=== PATIENT | male | born 1970 | race Caucasian/White ===

== ENCOUNTER 2022-04-09 01:39 | Day surgery (SDC) | payer OTHER, SELFPAY ==
[2022-02-14 09:53] VITALS: BMI 25.9
[2022-03-21 15:15] VITALS: BMI 25.9
[2022-04-09] MEDS: GENTAMICIN 80MG/SOD CHL 50 ML 80 MG/50 ML BAG 100 MG IVPB (06:50)
[2022-04-09 07:04] LABS: Glucose Point of Care 125 mg/dl (65-105)
[2022-04-09 07:05] VITALS: BP 120/72; PULSE 66; RESP 20; TEMP 35.8; O2SAT 97; BMI 26.2
[2022-04-09 07:05] LABS: INR 1.1; Prothrombin Time 13.9 Seconds (11.1-14.7)
--- NOTE | 2022-04-09 07:17 | WPDANESEPPF ---
Anes - Initial Pre Proc Eval Procedure: Operation Date: 04/09/22 07:30 Proposed Procedures p Screening Colonoscopy - Jose Alberto Bishop MD Date/Time: 04/09/22 07:17 Surgeon: Jose Alberto Bishop MD Pre Op Diagnosis: neoplasm screening Patient Data Age: 51 Gender: M Height: 1.7 m Weight: 76.1 kg Last Vital Signs Temp 35.8 C L 04/09/22 07:05 Pulse 66 04/09/22 07:05 Resp 20 04/09/22 07:05 BP 120/72 04/09/22 07:05 Pulse Ox 97 04/09/22 07:05 O2 Del Method Room Air 04/09/22 07:05 Allergies Allergy/AdvReac Type Severity Reaction Status Date / Time No Known Allergies Allergy Verified 03/21/22 15:14 Home Medications Medication Instructions Recorded Confirmed Type blood sugar diagnostic #10 ea 08/15/19 03/21/22 History lancets 23 gauge (Lancets,Thin) #25 ea 08/15/19 03/21/22 History metoprolol succinate 50 mg 50 mg PO DAILY 08/15/19 03/21/22 History tablet,extended release 24 hr glimepiride 4 mg tablet 4 mg PO QAM #90 tabs 04/24/21 03/21/22 Rx allopurinol 300 mg tablet 300 mg PO DAILY #7 tabs 10/17/21 03/21/22 Rx metformin 1,000 mg tablet 1,000 mg PO BID #180 tabs 01/29/22 03/21/22 Rx atorvastatin 10 mg tablet 5 mg PO DAILY 02/14/22 03/21/22 History levothyroxine 75 mcg tablet 75 mcg PO DAILY #90 tabs 03/22/22 04/09/22 Rx venlafaxine 75 mg capsule,extended 75 mg PO QAM #90 caps 03/22/22 04/09/22 Rx release 24 hr warfarin 10 mg tablet 11 mg PO DAILY 04/09/22 04/09/22 History warfarin 10 mg tablet See Rx Instructions .Route .COMPLEX 04/09/22 04/09/22 History Laboratory Tests 04/09/22 04/09/22 06:48 07:00 PT 13.9 Seconds Seconds (11.1-14.7) INR 1.1 POC Capillary Glucose 125 mg/dl H mg/dl (65-105) Patient hx anesthesia problems: none Family hx anesthesia problems: none Results Review: All pre-operative results and documents have been reviewed as part of the pre-operative evaluation. 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, stage II (mild) Controlled type 2 diabetes mellitus with microalbuminuria, without long-term current use of insulin Hypothyroidism (acquired) Major depression Paroxysmal atrial fibrillation (07/18/15) Personal history of (corrected) congenital malformations of heart and circulatory system Spermatocele of epididymis, single Surgical History Surgical History (Updated 04/09/22 @ 07:22 by Raji Hernandez MD) AICD (automatic cardioverter/defibrillator) present Family History Family History Mother Hypertension Family history of diabetes mellitus in first degree relative Family history of congestive heart failure Father Family history of diabetes mellitus in first degree relative Sibling Family history of diabetes mellitus in first degree relative Social History Social History (Updated 02/14/22 @ 11:30 by Gale Coleman RN) Smoking packs per day: 1 Smoking cigarettes per day: 20.0 Years smoked: 17 Smoking pack-years: 17.00 Smoking status: Former smoker Tobacco type: cigarettes Alcohol intake: current Alcohol use details: Rarely Substance use: never Substance use type: does not use Living arrangements: with family Spiritual care concerns: No Anes - Eval Final PreProcedure Day of Procedure 04/09/22 07:17 Patient weight: overweight Heart: regular rate and rhythm Lungs: clear to auscultation and normal air movement Airway: Mallampati scale class II Neurological: alert and oriented Last oral intake: >/= 8 hours ASA classification: IV Emergent: no Anesthetic plan: proceed Anesthesia type and monitoring: general GIVS Results Review: All pre-operative results and documents have been reviewed
[2022-04-09] MEDS: AMPICILLIN 2 GM/NS 100 ML 2 GM/100 ML BAG IVPB (07:20)
[2022-04-09] MEDS: LACTATED RINGERS 1,000 ML 150 ML IV CONT (07:46)
--- NOTE | 2022-04-09 08:02 | PM.IMHP ---
H&P: HPI History of Present Illness Date/Time: 04/09/22 08:02 Chief Complaint: Neoplasia screening. Narrative: This is a 51-year-old white male patient referred for neoplasia screening colonoscopy. Patient states that his current weight appetite bowel movements are normal. Denies any blood in his stools. Family history is significant that his mother had colon polyps. Patient has a distant history of tetralogy of Fallot. He had in surgery as an to correct this. More recently patient has had a pulmonary valve replacement with both being valve. Patient presents today for screening colonoscopy. Review of Systems Review of Systems: Review of systems noncontributory. 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, stage II (mild) Controlled type 2 diabetes mellitus with microalbuminuria, without long-term current use of insulin Hypothyroidism (acquired) Major depression Paroxysmal atrial fibrillation (07/18/15) Personal history of (corrected) congenital malformations of heart and circulatory system Spermatocele of epididymis, single Surgical History Surgical History (Updated 04/09/22 @ 07:22 by Raji Hernandez MD) AICD (automatic cardioverter/defibrillator) present Family History Family History Mother Hypertension Family history of diabetes mellitus in first degree relative Family history of congestive heart failure Father Family history of diabetes mellitus in first degree relative Sibling Family history of diabetes mellitus in first degree relative Social History Social History (Updated 02/14/22 @ 11:30 by Gale Coleman RN) Smoking packs per day: 1 Smoking cigarettes per day: 20.0 Years smoked: 17 Smoking pack-years: 17.00 Smoking status: Former smoker Tobacco type: cigarettes Alcohol intake: current Alcohol use details: Rarely Substance use: never Substance use type: does not use Living arrangements: with family Spiritual care concerns: No Meds Home Medications and Allergies Home Medications Medication Instructions Recorded Confirmed Type blood sugar diagnostic #10 ea 08/15/19 03/21/22 History lancets 23 gauge (Lancets,Thin) #25 ea 08/15/19 03/21/22 History metoprolol succinate 50 mg 50 mg PO DAILY 08/15/19 03/21/22 History tablet,extended release 24 hr glimepiride 4 mg tablet 4 mg PO QAM #90 tabs 04/24/21 03/21/22 Rx allopurinol 300 mg tablet 300 mg PO DAILY #7 tabs 10/17/21 03/21/22 Rx metformin 1,000 mg tablet 1,000 mg PO BID #180 tabs 01/29/22 03/21/22 Rx atorvastatin 10 mg tablet 5 mg PO DAILY 02/14/22 03/21/22 History levothyroxine 75 mcg tablet 75 mcg PO DAILY #90 tabs 03/22/22 04/09/22 Rx venlafaxine 75 mg capsule,extended 75 mg PO QAM #90 caps 03/22/22 04/09/22 Rx release 24 hr warfarin 10 mg tablet 11 mg PO DAILY 04/09/22 04/09/22 History warfarin 10 mg tablet See Rx Instructions .Route .COMPLEX 04/09/22 04/09/22 History Allergies Allergy/AdvReac Type Severity Reaction Status Date / Time No Known Allergies Allergy Verified 03/21/22 15:14 Vital Signs Vital Signs - 24 hr 04/09/22 07:05 Temperature 96.5 F L Pulse Rate 66 Respiratory Rate 20 Blood Pressure 120/72 Pulse Oximetry 97 Oxygen Delivery Room Air Exam Narrative: Physical exam reveals patient to be alert. Vital signs stable. HEENT exam is unremarkable. Patient is anicteric. Lungs are clear to auscultation and percussion. Heart Reveals significant murmurs.. Abdomen bowel sounds are present soft nontender with no organomegaly. Digital external rectal exam is normal. Assessment and Plan Assessment and plan (1) Encounter for screening colonoscopy: Code(s): Z12
[2022-04-09 08:36] VITALS: BP 83/51; PULSE 62; RESP 25; O2SAT 97
[2022-04-09 08:46] VITALS: BP 97/66; PULSE 60; RESP 27; O2SAT 97
[2022-04-09 08:56] VITALS: BP 108/78; PULSE 63; RESP 26; O2SAT 100
== END 2022-04-09 09:09 | disposition home or self-care (01) ==
PROVIDERS: PCP Family Medicine; Visit Provider Internal Medicine Gastroenterology
PROC: 0DJD8ZZ Inspection of Lower Intestinal Tract, Via Natural or Artificial Opening Endoscopic (ICD-10-PCS; CPT 45378; principal; 2022-04-09 07:30)
DX: Z12.11 Encounter for screening for malignant neoplasm of colon (principal); D12.2 Benign neoplasm of ascending colon; D12.5 Benign neoplasm of sigmoid colon; I48.0 Paroxysmal atrial fibrillation; K64.8 Other hemorrhoids; R42 Dizziness and giddiness; F32.A Depression, unspecified; E11.22 Type 2 diabetes mellitus with diabetic chronic kidney disease; N18.2 Chronic kidney disease, stage 2 (mild); R80.8 Other proteinuria; Z95.810 Presence of automatic (implantable) cardiac defibrillator; Z87.891 Personal history of nicotine dependence; E03.9 Hypothyroidism, unspecified; Z79.84 Long term (current) use of oral hypoglycemic drugs; Z79.01 Long term (current) use of anticoagulants; Z87.74 Personal history of (corrected) congenital malformations of heart and circulatory system
CPT/HCPCS: 45385; 36415; 82948; 85610; 88305; J0290; J1580; J2704; J7120

== ENCOUNTER 2022-04-11 10:02 | Observation (INO) | payer OTHER, SELFPAY ==
[2022-04-11] VITALS (27 sets, daily range): BP systolic 91–108; BP diastolic 54–76; PULSE 70–83; RESP 15–23; TEMP 36.3–36.7; O2SAT 94–100; BMI 26.4
--- NOTE | ~2022-04-11 | CT_ITS ---
EXAMINATION: CT abdomen pelvis w con DATE: 04/11/2022 11:50 INDICATION: Hematochezia. TECHNIQUE: Computed tomography (CT) of the abdomen and pelvis was performed with 100 mL Omnipaque-350 intravenous contrast. Automated exposure control and iterative reconstruction technique were employe d. The dose-length product was 366.31 mGy-cm. COMPARISON: None FINDINGS: Mild discoid atelectasis at the lingula. Mild cardiomegaly. No pericardial or pleural effusion. Dual lead pacemaker seen with lead tips at the right atrial appendage and apex of the right ventricle. Aditi er, gallbladder, spleen, pancreas, bilateral adrenal glands and kidneys are normal. Bladder is normal . Moderate-sized fat-containing left inguinal hernia. Bowels are normal with no wall thickening or ob struction. No evident intraluminal active contrast extravasation. The appendix is not visualized. No pericecal inflammatory change to suggest acute appendicitis. No free intraperitoneal gas or fluid. No pathologically enlarged abdominal or pelvic lymphadenopathy. Chronic appearing mild anterior wedging at L1 with additional Schmorl's node along the superior endplate. Normal variant L3 limbus vertebra. Mild to moderate thoracolumbar spondylosis. IMPRESSION: 1. No acute intra-abdominal/pelvic process. 2. Mild cardiomegaly. Reviewed, dictated and finalized at location A.
--- NOTE | 2022-04-11 10:44 | ED.GIBLEED ---
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 Patient states that with every bowel movement, he is noted a large amount of bright red blood mixed in with the stool. He has had about 4 episodes in total. He notes that his stools have been liquid. Additionally notes that he has felt lightheaded and somewhat weak, has not passed out. He stopped his warfarin for 4 days prior to the procedure, but restarted the day before he started to bleed. Spoke to Dr. Bishop this morning who recommended ED evaluation. Denies any abdominal pain, shortness of breath, chest pain. 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 <JULIUS Hart Last Filed: 04/11/22 18:25> Related Data Home medications: Home Medications Medication Instructions Recorded Confirmed metoprolol succinate 50 mg 50 mg PO DAILY 08/15/19 04/11/22 tablet,extended release 24 hr atorvastatin 10 mg tablet 5 mg PO DAILY 02/14/22 04/11/22 warfarin 10 mg tablet 11 mg PO DAILY 04/09/22 04/11/22 warfarin 10 mg tablet See Rx Instructions .Route .COMPLEX 04/09/22 04/11/22 <JULIUS Hart Last Filed: 04/11/22 18:25> Allergies/Adverse reactions: Allergies Allergy/AdvReac Type Severity Reaction Status Date / Time No Known Allergies Allergy Verified 04/11/22 10:05 <JULIUS Hart Last Filed: 04/11/22 18:25> Review of Systems Review of Systems: Gen: Reports lightheadedness. Denies fevers or chills Eyes: Denies eye pain or visual change ENT: Denies congestion Respiratory: Denies shortness of breath or cough CV: Denies chest pain or palpitations GI: Reports blood in stool. Denies abdominal pain nausea, emesis or diarrhea : denies burning, urgency, frequency or hematuria Musculoskeletal: Denies back pain or muscle pain Neuro: Denies numbness, tingling, weakness or focal weakness Skin: Denies rash Except as documented, all other systems reviewed and negative <Rea Man PA-C - Last Filed: 04/11/22 18:25> [facility] Past Medical History Medical History: Medical History (Updated 04/11/22 @ 16:11 by Jose Alberto Bishop MD) Dyslipidemia Hypothyroidism Major depression Paroxysmal atrial fibrillation Paroxysmal atrial flutter Tetralogy of Fallot Post surgical repair at the age of 4. Type 2 diabetes mellitus <Rea Man PA-C - Last Filed: 04/11/22 18:25> Surgical History Surgical History: Surgical History (Updated 04/11/22 @ 14:57 by Mari Mcdermott PA-C) AICD (automatic cardioverter/defibrillator) present History of appendectomy History of cardioversion History of colonoscopy with polypectomy (04/09/22) History of pulmonary valve replacement with bioprosthetic valve History of tetralogy of Fallot repair <Rea Man PA-C - Last Filed: 04/11/22 18:25> Family History Family History: Family History Mother Hypertension Family history of diabetes mellitus in first degree relative Family history of congestive heart failure Father Family history of diabetes mellitus in first degree relative Sibling Family history of diabetes mellitus in first degree relative <Rea Man PA-C - Last Filed: 04/11/22 18:25> Social History Social History: Social History (Updated 04/11/22 @ 14:55 by Mari Mcdermott PA-C) Social History: Surrogate medical dec
[2022-04-11 11:03] LABS: Basophils Absolute Auto 0.1 K/mm3 (0.0-0.1); Basophils Percent Auto 0.6 % (0.2-1.2); Eosinophils Absolute Auto 0.1 K/mm3 (0-0.3); Eosinophils Percent Auto 0.7 % (0-4.4); Hematocrit 34.7 % (42.0-52.0); Hemoglobin 11.2 g/dL (14.0-18.0); Immature Granulocyte Absolute 0.11 K/mm3 (0.00-0.031); Immature Granulocyte Percent A 1.4 % (0-0.5); Lymphocytes Absolute Auto 1.66 K/mm3 (0.9-3.2); Lymphocytes Percent Auto 20.5 % (18.3-44.2); Mean Corpuscular HGB Conc 32.3 g/dl (32-36); Mean Corpuscular Hemoglobin 28.4 pg (26-34); Mean Corpuscular Volume 87.8 fl (80-100); Mean Platelet Volume 10.8 fl (7.4-10.4); Monocytes Absolute Auto 0.4 K/mm3 (0.1-0.6); Monocytes Percent Auto 5.2 % (2.6-8.5); Neutrophils Absolute Auto 5.8 K/mm3 (1.3-6.7); Neutrophils Percent Auto 71.6 % (45.5-73.1); Platelet Count Result 295 k/mm3 (150-375); Red Blood Count 3.95 M/mm3 (4.6-6.20); Red Cell Distribution Width 15.2 % (11.5-14.5); White Blood Count 8.1 K/mm3 (4.5-10.0)
[2022-04-11 11:12] LABS: INR 1.1; Prothrombin Time 14.2 Seconds (11.1-14.7)
[2022-04-11 11:13] LABS: Alanine Aminotransferase 21 U/L (6-50); Albumin Level 4.3 g/dL (3.5-5.1); Alkaline Phosphatase 57 U/L (38-126); Anion Gap 2 mmol/L (8-16); Aspartate Amino Transferase 28 U/L (17-59); Bilirubin,Total 0.5 mg/dL (0.2-1.3); Blood Urea Nitrogen 24 mg/dL (9-20); Calcium 9.8 mg/dL (8.4-10.2); Carbon Dioxide 26 mmol/L (22-30); Chloride 103 mmol/L (98-107); Estimated CRCL calculation 73 ml/min; Estimated Glomerular Filt Rate > 60; Glucose 199 mg/dL (65-110); Partial Thromboplastin Time 28.4 SECONDS (22.3-36.8); Potassium 5.3 mmol/L (3.4-5.0); Sodium 131 mmol/L (137-145)
[2022-04-11] MEDS: SODIUM CHLORIDE 0.9% IV 1,000 ML 999 ML IV CONT (11:31)
[2022-04-11 15:13] LABS: Hematocrit 31.3 % (42.0-52.0); Hemoglobin 10.2 g/dL (14.0-18.0)
--- NOTE | 2022-04-11 16:08 | WPDGICN ---
Assessment and Plan Assessment and plan (1) Rectal bleeding: Code(s): K62.5 - Hemorrhage of anus and rectum Status: Acute Assessment and Plan: Patient with post polypectomy bleeding. Most likely from polypectomy of rather large ascending colon polyp. Plan for observation. Usually these will stop on their own but if bleeding persist we may wish to consider colonoscopy tomorrow. Will follow frequency of bowel movements and blood count and blood pressure overnight. IV hydration suggested at this time. (2) History of colon polyps: Code(s): Z86.010 - Personal history of colonic polyps Status: Acute Assessment and Plan: Patient had several benign adenomatous colon polyps. Plan follow-up colonoscopy in 3 years. (3) Paroxysmal atrial fibrillation: Code(s): I48.0 - Paroxysmal atrial fibrillation Status: Acute Assessment and Plan: Patient had ablation for atrial fibrillation currently in sinus rhythm. He is anticoagulated this will be held until we are certain he is healed from post polypectomy. (4) Personal history of (corrected) congenital malformations of heart and circulatory system: Code(s): Z87.74 - Personal history of (corrected) congenital malformations of heart and circulatory system Status: Acute Assessment and Plan: Patient has a history of pulmonary valve replacement. He had correction of Tetralogy of Fallot as a child. 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 GI Consult Note Consult date/time: 04/11/22 16:08 Reason for consult: GI bleeding HPI: Tato Elaine is a 51 year old male who presents with GI bleeding after recent colonoscopy. On Saturday 2 days ago patient was found to have several colon polyps. These ultimately were found to be benign tubular adenomas. Last evening patient passed a small amount of blood per rectum this morning he passed a rather significant amount of bright red blood per rectum. Patient denies any abdominal pain. Because of mild lightheadedness and ongoing bleeding patient was sent to the emergency room where he was noticed only a mild decline in hemoglobin and rather soft blood pressure for this reason he is admitted the hospital for upper dilation. Patient's past medical history is significant for tetralogy of Fallot as a child. This was surgically corrected. Several years ago he had a pulmonary valve replacement. He has been maintained on anticoagulation with warfarin since that time. This was held in anticipation of his colonoscopy. He did take 1 dose yesterday. Patient does not normally have significant bleeding. He does have a history of ablation of cardiac dysrhythmia in the past. His heart rate has been in regular sinus rhythm more recently. Review of Systems Review of Systems: Review of systems noncontributory. [facility] Past Medical History Medical History (Updated 04/11/22 @ 16:11 by Jose Alberto Bishop MD) Dyslipidemia Hypothyroidism Major depression Paroxysmal atrial fibrillation Paroxysmal atrial flutter Tetralogy of Fallot Post surgical repair at the age of 4. Type 2 diabetes mellitus Surgical History Surgical History (Updated 04/11/22 @ 14:57 by Mari Mcdermott PA-C) AICD (automatic cardioverter/defibrillator) present History of appendectomy History of cardioversion History of colonoscopy with polypectomy (04/09/22) History of pulmonary valve replacement with bioprosthetic valve History of tetralogy of Fallot repair Family History Family History Mother Hypertension Family history of diabetes mellitus in first degree relative Family history of congestive heart failure Father Family history of diabetes mellit
--- NOTE | 2022-04-11 18:05 | PC.NURSE ---
This patient, Tato Elaine, was admitted to Medical Room 346-01. Patient/family oriented to hospital policies and general routines including ID bracelet, bed and alarms, visiting hours, pain management, procedures, bathroom and other care routines, personal items, smoking policy, room service/diet, and visiting hours. Information on how to activate the Rapid Response Team has been discussed. Patient/Family are encouraged to report perceived risks to care and to ask questions if they do not understand what they are told or what they should do.
[2022-04-11 19:49] LABS: Hematocrit 30.3 % (42.0-52.0); Hemoglobin 9.7 g/dL (14.0-18.0)
--- NOTE | 2022-04-11 20:30 | PM.IMHP ---
H&P: HPI History of Present Illness Date/Time: 04/11/22 20:30 Chief Complaint: Bloody stools. Narrative: This is a 51-year-old male with history of tetralogy of Fallot which was surgically corrected as a child, paroxysmal atrial flutter status post ablation on chronic long-term anticoagulation, type 2 diabetes mellitus, gout, hypothyroidism, and dyslipidemia presented to the emergency department for evaluation of bloody stools. He had a colonoscopy done 2 days ago on 04/09/2022 at which time 2 polyps were retrieved, one was quite large. Yesterday he started passing bright red blood with his stool and he had 4 such episodes last evening. This morning he was lightheaded and weak and he came in for evaluation. He was afebrile on arrival and his blood pressure did drop to as low as 83/51 in the ED. Hemoglobin was 11.2 on arrival and he has dropped about 1.5 grams at the time of this dictation. Other pertinent labs include a sodium of 131, potassium 5.3, BUN 24, and glucose 199. INR was 1.1. With further questioning his warfarin was held 4 days prior to colonoscopy and he started taking that again 2 nights ago. At the time my evaluation he has no specific complaints and is resting comfortably. Review of Systems Review of Systems: Twelve systems were reviewed. No syncope or presyncope though he has felt a bit weak and lightheaded. No fever, chills, or sweats. No recent cold or flu symptoms. No chest pain or shortness of breath. No sensation of racing heart or palpitations. He had a cardiac ablation for atrial flutter though on occasion he does have intermittent but brief episodes racing heart. No abdominal pain or rectal pain. Except as documented, all other systems were reviewed and are negative. [facility] Past Medical History Medical History (Updated 04/11/22 @ 23:52 by Mari Mcdermott PA-C) Dyslipidemia Hypothyroidism Major depression Paroxysmal atrial flutter Status post cardiac ablation. Tetralogy of Fallot Post surgical repair at the age of 4. Type 2 diabetes mellitus Surgical History Surgical History (Updated 04/11/22 @ 23:02 by Mari Mcdermott PA-C) History of appendectomy History of cardiac radiofrequency ablation History of cardioversion History of colonoscopy with polypectomy (04/09/22) History of implantable cardiac defibrillator (ICD) History of pulmonary valve replacement with bioprosthetic valve History of tetralogy of Fallot repair Family History Family History Mother Hypertension Family history of diabetes mellitus in first degree relative Family history of congestive heart failure Father Family history of diabetes mellitus in first degree relative Sibling Family history of diabetes mellitus in first degree relative Social History Social History (Updated 04/11/22 @ 14:55 by Mari Mcdermott PA-C) Social History: Surrogate medical decision maker: Karen Elaine, spouse. Code status: Full code. Smoking packs per day: 1.5 Smoking cigarettes per day: 30.0 Years smoked: 20 Smoking pack-years: 30.00 Smoking status: Former smoker Tobacco type: cigarettes Second hand tobacco smoke exposure: Yes Additional smoking assessment comments: Quit in 2008. Alcohol intake: current Alcohol use details: Rare alcohol use in moderation. Substance use: never Substance use type: does not use Spiritual care concerns: No Meds Home Medications and Allergies Home Medications Medication Instructions Recorded Confirmed Type metoprolol succinate 50 mg 50 mg PO DAILY 08/15/19 04/11/22 History tablet,extended release 24 hr glimepiride 4 mg tablet 4 mg PO QAM #90 tabs 04/24/21 04/11/22 Rx allopurinol 300 mg tablet 300 mg PO DAILY #7 tabs 10/17/21 04/11/22 Rx metformin 1,000 mg tablet 1,000 mg PO BID #180 tabs 01/29/22 04/11/22 Rx atorvastatin 10 mg tablet 5 mg PO DAILY 02/14/22 04/11/22 History levothyroxine 75 mcg tablet 75 mc
[2022-04-11] MEDS: SODIUM CHLORIDE 0.9% IV 1,000 ML 75 ML IV CONT (23:21)
[2022-04-12 00:18] VITALS: PULSE 75
[2022-04-12] MEDS: METOPROLOL SUCCINATE EXT REL 50 MG TABCR PO (00:18)
[2022-04-12 00:31] LABS: Hematocrit 30.7 % (42.0-52.0); Hemoglobin 9.8 g/dL (14.0-18.0)
[2022-04-12 00:41] LABS: Anion Gap 8 mmol/L (8-16); Blood Urea Nitrogen 19 mg/dL (9-20); Calcium 9.9 mg/dL (8.4-10.2); Carbon Dioxide 27 mmol/L (22-30); Chloride 102 mmol/L (98-107); Estimated CRCL calculation 61 ml/min; Estimated Glomerular Filt Rate > 60; Glucose 91 mg/dL (65-110); Magnesium 1.8 mg/dL (1.6-2.3); Potassium 4.7 mmol/L (3.4-5.0); Sodium 137 mmol/L (137-145)
[2022-04-12 00:46] LABS: Hemoglobin A1C 6.1 % (<5.7)
[2022-04-12 05:21] VITALS: BP 98/51; PULSE 69; RESP 16; TEMP 36.6; O2SAT 96
[2022-04-12 06:14] LABS: Basophils Percent Auto 0.5 % (0.2-1.2); Eosinophils Absolute Auto 0.2 K/mm3 (0-0.3); Eosinophils Percent Auto 2.8 % (0-4.4); Hematocrit 30.5 % (42.0-52.0); Hemoglobin 9.7 g/dL (14.0-18.0); Immature Granulocyte Absolute 0.07 K/mm3 (0.00-0.031); Immature Granulocyte Percent A 1.2 % (0-0.5); Lymphocytes Percent Auto 24.6 % (18.3-44.2); Mean Corpuscular HGB Conc 31.8 g/dl (32-36); Mean Corpuscular Hemoglobin 28.4 pg (26-34); Mean Corpuscular Volume 89.4 fl (80-100); Mean Platelet Volume 9.8 fl (7.4-10.4); Monocytes Absolute Auto 0.4 K/mm3 (0.1-0.6); Monocytes Percent Auto 7.7 % (2.6-8.5); Neutrophils Absolute Auto 3.6 K/mm3 (1.3-6.7); Neutrophils Percent Auto 63.2 % (45.5-73.1); Platelet Count Result 218 k/mm3 (150-375); Red Blood Count 3.41 M/mm3 (4.6-6.20); Red Cell Distribution Width 15.4 % (11.5-14.5); White Blood Count 5.7 K/mm3 (4.5-10.0)
[2022-04-12] MEDS: LEVOTHYROXINE SODIUM 75 MCG TABLET PO (06:15)
[2022-04-12 06:38] LABS: Alanine Aminotransferase 16 U/L (6-50); Albumin Level 3.6 g/dL (3.5-5.1); Alkaline Phosphatase 52 U/L (38-126); Anion Gap 1 mmol/L (8-16); Aspartate Amino Transferase 20 U/L (17-59); Bilirubin,Total 0.4 mg/dL (0.2-1.3); Blood Urea Nitrogen 17 mg/dL (9-20); Carbon Dioxide 26 mmol/L (22-30); Chloride 106 mmol/L (98-107); Estimated CRCL calculation 73 ml/min; Estimated Glomerular Filt Rate > 60; Glucose 142 mg/dL (65-110); Potassium 4.7 mmol/L (3.4-5.0); Sodium 133 mmol/L (137-145)
--- NOTE | 2022-04-12 07:52 | WPDGIPROGNO ---
Progress Note: A&P Assessment and Plan (1) Rectal bleeding: Code(s): K62.5 - Hemorrhage of anus and rectum Status: Acute Assessment and Plan: Patient with post polypectomy bleeding. This is now stated. Hemoglobin has remained stable approximately 9.7. Plan to allow regular diet. Discharge today. I would advise holding blood thinners for 4-5 days prior to restarting Coumadin. Follow-up colonoscopy suggested in 5 years because of benign colon polyps. (2) History of colon polyps: Code(s): Z86.010 - Personal history of colonic polyps Status: Acute Assessment and Plan: Polyps confirmed to be benign adenomas. Follow-up colonoscopy in 5 years. (3) Paroxysmal atrial flutter: Code(s): I48.92 - Unspecified atrial flutter Status: Acute Assessment and Plan: Patient has a history of ablation of atrial fibrillation. On anticoagulation. Given post polypectomy bleeding would hold restarting Coumadin for about 4-5 days. Discharge today of the area (4) Personal history of (corrected) congenital malformations of heart and circulatory system: Code(s): Z87.74 - Personal history of (corrected) congenital malformations of heart and circulatory system Status: Acute Subjective Date/time seen: 04/12/22 07:52 Patient alert comfortable this morning. Past small amount of old blood last evening and perhaps this morning. None throughout the night. Hemoglobin stable. Tolerated diet. No pain Review of Systems Review of Systems: review of systems noncontributory. Exam Narrative: Physical exam reveals patient to be alert. Vital signs stable. HEENT exam is unremarkable. Patient anicteric. Lungs are clear. Heart without murmur. Abdomen bowel sounds present soft nontender with no organomegaly. Objective Data Vital Signs Vital Signs: Vital Signs - 24 hr 04/11/22 10:03 04/11/22 11:01 04/11/22 11:00 Temperature 97.7 F Pulse Rate 74 77 78 Respiratory Rate 18 16 17 Blood Pressure 96/57 L 95/66 L Pulse Oximetry 98 98 98 Oxygen Delivery Room Air 04/11/22 11:01 04/11/22 11:15 04/11/22 11:30 Temperature Pulse Rate 76 78 75 Respiratory Rate 20 18 19 Blood Pressure 95/66 L Pulse Oximetry 98 96 96 Oxygen Delivery 04/11/22 11:31 04/11/22 11:51 04/11/22 12:00 Temperature Pulse Rate 81 77 72 Respiratory Rate 18 23 H 23 H Blood Pressure 108/76 Pulse Oximetry 98 100 95 Oxygen Delivery 04/11/22 12:15 04/11/22 12:30 04/11/22 12:31 Temperature Pulse Rate 74 75 73 Respiratory Rate 22 H 23 H 23 H Blood Pressure 98/56 L Pulse Oximetry 97 97 97 Oxygen Delivery 04/11/22 12:45 04/11/22 13:00 04/11/22 13:01 Temperature Pulse Rate 72 72 74 Respiratory Rate 19 20 15 Blood Pressure 97/61 L Pulse Oximetry 100 98 98 Oxygen Delivery 04/11/22 13:15 04/11/22 13:30 04/11/22 13:31 Temperature Pulse Rate 80 77 79 Respiratory Rate 20 18 22 H Blood Pressure 91/67 L Pulse Oximetry 95 97 96 Oxygen Delivery 04/11/22 13:45 04/11/22 14:00 04/11/22 14:01 Temperature Pulse Rate 80 80 78 Respiratory Rate 20 19 22 H Blood Pressure 94/67 L Pulse Oximetry 95 97 96 Oxygen Delivery 04/11/22 14:15 04/11/22 14:30 04/11/22 14:31 Temperature Pulse Rate 81 77 76 Respiratory Rate 19 22 H 20 Blood Pressure 101/64 Pulse Oximetry 94 95 95 Oxygen Delivery 04/11/22 14:45 04/11/22 15:45 04/11/22 19:32 Temperature 98.1 F 97.3 F L Pulse Rate 77 70 83 Respiratory Rate 20 20 18 Blood Pressure 107/54 L 107/59 L Pulse Oximetry 97 100 97 Oxygen Delivery 04/12/22 00:18 04/12/22 05:21 04/11/22 19:59 Temperature 97.8 F Pulse Rate 75 69 Respiratory Rate 16 Blood Pressure 98/51 L Pulse Oximetry 96 97 Oxygen Delivery Room Air Intake/Output Intake/Output: Intake & Output 04/09/22 04/10/22 04/11/22 04/12/22 23:59 23:59 23:59 23:59 Intake Total 1970 550 Output Total
[2022-04-12 08:10] LABS: Glucose Point of Care 142 mg/dl (65-105)
[2022-04-12] MEDS: VENLAFAXINE HCL XR 75 MG CAP.ER.24H PO (09:49)
[2022-04-12 12:16] LABS: Glucose Point of Care 194 mg/dl (65-105)
--- NOTE | 2022-04-12 12:29 | PM.DS ---
DS: Admitting Diagnosis Discharge Date 04/12/2020 1304 Admitting Diagnosis rectal bleeding symptomatic anemia electrolyte abnormality DS: Discharge Diagnosis Discharge Diagnosis (1) Rectal bleeding: Code(s): K62.5 - Hemorrhage of anus and rectum Status: Acute (2) Normocytic anemia: Code(s): D64.9 - Anemia, unspecified Status: Acute (3) Electrolyte abnormality: Code(s): E87.8 - Other disorders of electrolyte and fluid balance, not elsewhere classified Status: Acute (4) respiratory therapy manager current use of anticoagulant therapy: Code(s): Z79.01 - penitentiary (current) use of anticoagulants Status: Chronic (5) Paroxysmal atrial fibrillation: Code(s): I48.0 - Paroxysmal atrial fibrillation Status: Chronic DS: Summary Hospital Course Reason for hospitalization: bloody stools Hospital Course: Tato Elaine is a 51-year-old male with history of tetralogy of Fallot, paroxysmal atrial fibrillation status post ablation on chronic warfarin, type 2 diabetes mellitus, gout, hypothyroidism, and hyperlipidemia. Patient presented to the emergency department for evaluation of bloody stools. The patient had colonoscopy done on 04/09/22 at which time he had 2 polyps removed. The patient reported resuming his warfarin 2 nights prior to admission. This had been held for 4 days prior to colonoscopy. The day prior to admission he had multiple, more than 4 bright red stools. He reported complaints of lightheadedness and weakness prompting his evaluation. Upon arrival to the ED his blood pressure was 83/51 and heart rate was 74. hemoglobin was 11.2 upon arrival, approximately 1.5 g lower than previous. Additionally he was noted to have sodium 131, potassium 5.3, BUN 24, and glucose 199. INR was 1.1. GI was consulted the emergency department And requested observation. Patient was referred for observation. GI was consulted and assisted with management. Hemoglobin was trended hemoglobin was noted to be 9.8 and 9.7. Patient had had 2 stools on the night of admission. He had no further stools during his hospital stay however. Patient was treated with IV fluids and symptoms improved. Warfarin was held and patient was instructed to continue holding for 5 days following his last bloody stool With home PT INR monitoring in 1 week. Patient did talk to his lubrication technician on the phone it was aware of his hospitalization and plans to hold his warfarin. patient is to call his lubrication technician with his PT/INR results. Patient's diet was advanced which he tolerated well. The patient was discharged home in stable condition, although blood pressure was soft 90s to 110s/ 50s, heart rate 69. He was instructed to check blood pressure prior to taking his metoprolol at bedtime. Patient was instructed to have a repeat colonoscopy within 5 years. Patient will have follow-up with his primary care provider in 1-2 weeks. He was counseled on symptoms to report and when to seek immediate care. Status at Discharge Cognitive/behavioral status at discharge: Alert and oriented x4, pleasant Functional status at discharge: independent ambulation Overall status at discharge: patient is back to baseline Time Spent with Patient Time attestation: Total time spent providing and/or coordinating discharge services: Time spent: Greater than 30 minutes Exam Narrative: General: Well-developed male sitting up in the chair. Nontoxic in appearance. HEENT: PERRL, EOMI. Sclera anicteric. Tacky mucous membranes. Neck: Supple. Respiratory: Lungs are clear to auscultation bilaterally. Cardiovascular: Regular rate and rhythm with S1-S2. Harsh murmur at the left sternal border but appreciated throughout the precordium. Gastrointestinal: Abdomen is soft, nontender, and nondistended with positive bowel sounds. Rectal exam not performed. Skin: Warm and dry. No rash or lesions on limited exam. Extremities: No cyanosis, clubbing, or elisabeth
[2022-04-12] MEDS: BACITRACIN OINTMENT 15 GM TUBE 1 APPLIC TOPICAL (13:57)
== END 2022-04-12 14:10 | disposition home or self-care (01) ==
LOC: ANHED 14:17 → ANH3MED 15:18
PROVIDERS: Physician Assistant; Admitting Provider Student in an Organized Health Care Education/Training Program; Emergency Provider Emergency Medicine; PCP Family Medicine; Visit Provider Nurse Practitioner Family
DX: K62.5 Hemorrhage of anus and rectum (principal); D64.9 Anemia, unspecified; E87.8 Other disorders of electrolyte and fluid balance, not elsewhere classified; I48.0 Paroxysmal atrial fibrillation; Z95.3 Presence of xenogenic heart valve; E11.9 Type 2 diabetes mellitus without complications; R42 Dizziness and giddiness; R53.1 Weakness; E78.5 Hyperlipidemia, unspecified; E03.9 Hypothyroidism, unspecified; F32.9 Major depressive disorder, single episode, unspecified; M10.9 Gout, unspecified; I48.92 Unspecified atrial flutter; I51.7 Cardiomegaly; Z95.810 Presence of automatic (implantable) cardiac defibrillator; Z87.74 Personal history of (corrected) congenital malformations of heart and circulatory system; Z86.010 Personal history of colon polyps; Z87.891 Personal history of nicotine dependence; Z79.01 Long term (current) use of anticoagulants; Z79.84 Long term (current) use of oral hypoglycemic drugs; Z79.899 Other long term (current) drug therapy; Z83.3 Family history of diabetes mellitus; Z82.49 Family history of ischemic heart disease and other diseases of the circulatory system
CPT/HCPCS: 36415; 74177; 80048; 80053; 82948; 83036; 83735; 84443; 85014; 85018; 85025; 85610; 85730; 86850; 86900; 86901; 96360; 96361; 99285; A9270; G0378; J7030; Q9967

== ENCOUNTER 2024-07-06 08:08 | Outpatient (CLI) | payer OTHER, SELFPAY ==
--- NOTE | ~2024-07-06 | US_ITS ---
EXAMINATION: US thyroid DATE: 07/06/2024 08:18 INDICATION: Nontoxic single thyroid nodule. TECHNIQUE: Multiple ultrasound images of the thyroid were obtained. COMPARISON: None. FINDINGS: The right thyroid lobe measures 3.9 x 1.7 x 2.2 cm. The left thyroid lobe measures 1.6 x 1.3 x 0.9 c m. There is normal echotexture and echogenicity throughout the thyroid gland. No discrete nodules id entified. Normal vascular flow is present. IMPRESSION: 1. Small left thyroid lobe. Otherwise normal thyroid ultrasound. Reviewed, dictated and finalized at location A. INTEGRITY CONSULTANT
== END 2024-07-06 08:09 | disposition home or self-care (01) ==
LOC: GOSHIMG 08:08
PROVIDERS: PCP Family Medicine; Visit Provider Family Medicine
DX: E04.1 Nontoxic single thyroid nodule (principal)
CPT/HCPCS: 76536

== ENCOUNTER 2025-07-23 02:06 | Day surgery (SDC) | payer OTHER, SELFPAY ==
[2025-07-16 13:21] VITALS: BMI 26.3
--- NOTE | 2025-07-16 14:19 | PC.NURSE ---
Spoke with _PATIENT_ regarding medication _WARFARIN_. _PATIENT__verbalizes understanding that the last dose is to be taken on __07/18/2025___ and the Endoscopist will instruct them when to restart after the procedure.
--- OUTSIDE RECORDS SUMMARY | 2025-07-23 02:08 | XMS_ITS | Encounter Summary ---
Author Organization [facility] Address [address] [place] [address] Phone Care Team Providers Care Freelance Operator Name Role Phone Minor Tena MD Primary Care Provider [phone] Matt Winchester DO Primary Care Provider [phone] Miscellaneous, Not In File Primary Care Provider Unavailable Rahat Haynes NP Primary Care Provider [phone] Encounter Details Date Type Department Care Team (Late st Contact Info) Description 06/18/2016 Orders Only [facility] Provider, MD Johnnie [address] [place] [address] Social History Tobacco Use Types Packs/Day Years Used Date Smoking Tobacco: Never Assessed Sex and Gender Information Value Date Recorded Sex Assigned at Not on file Legal 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 Historical Provider [facility] BERNSTEIN Final Result documented in this encounter Visit Diagnoses Not on filedocumented in this encounter Care Teams Freelance Operator Relationship Specialty Start Date End Date Minor Tena MD [address] [place] [address] PCP - General 03/03/14 04/16/23 Matt Winchester DO [address] [place] [address] [address] [place] [address] PCP - General Family Medicine 04/17/23 03/25/25 Miscellaneous, Not In File PCP - General 03/26/25 Rahat Machado NP [address] [place] [address] [address] [place] [address] PCP - General Family Medicine 04/15/25 documented as of this encounter
--- OUTSIDE RECORDS SUMMARY | 2025-07-23 02:08 | XMS_ITS | Encounter Summary ---
Author Organization [facility] Address [address] [place] [address] Phone Care Team Providers Care Loading And Unloading Supervisor Name Role Phone Minor Tena MD Primary Care Provider [phone] Matt Winchester DO Primary Care Provider [phone] Miscellaneous, Not In File Primary Care Provider Unavailable Rahat Haynes NP Primary Care Provider [phone] Encounter Details Date Type Department Care Team (Late st Contact Info) Description 03/30/2016 Orders Only [facility] Provider, MD Johnnie [address] [place] [address] Social History Tobacco Use Types Packs/Day Years Used Date Smoking Tobacco: Never Assessed Sex and Gender Information Value Date Recorded Sex Assigned at Not on file Legal 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 Historical Provider [facility] BERNSTEIN Final Result documented in this encounter Visit Diagnoses Not on filedocumented in this encounter Care Teams Loading And Unloading Supervisor Relationship Specialty Start Date End Date Minor Tena MD [address] [place] [address] PCP - General 03/03/14 04/16/23 Matt Winchester DO [address] [place] [address] [address] [place] [address] PCP - General Family Medicine 04/17/23 03/25/25 Miscellaneous, Not In File PCP - General 03/26/25 Rahat Machado NP [address] [place] [address] [address] [place] [address] PCP - General Family Medicine 04/15/25 documented as of this encounter
--- OUTSIDE RECORDS SUMMARY | 2025-07-23 02:08 | XMS_ITS | Encounter Summary ---
Author Organization [facility] Address [address] [place] [address] Phone Care Team Providers Care Personnel Worker Name Role Phone Minor Tena MD Primary Care Provider [phone] Matt Winchester DO Primary Care Provider [phone] Miscellaneous, Not In File Primary Care Provider Unavailable Rahat Haynes NP Primary Care Provider [phone] Encounter Details Date Type Department Care Team (Late st Contact Info) Description 12/21/2016 Orders Only [facility] Provider, MD Johnnie [address] [place] [address] Social History Tobacco Use Types Packs/Day Years Used Date Smoking Tobacco: Never Assessed Sex and Gender Information Value Date Recorded Sex Assigned at Not on file Legal Sex Male 3:18 AM EMT Gender Identity Male 11/20/2023 1:33 PM CDT Sexual Orientation Straight 11/20/2023 1: 33 PM CDT documented as of this encounter Plan of Treatment Not on file documented as of this encounter Procedures Procedure Name Priority Date/Time Associated Diagnosis Comments CARDIOLOGY REPORT 12/21/2016 documented in this encounter Results * CARDIOLOGY REPORT (12/21/2016) Anatomical Region Laterality Modality Other Narrative 12/21/2016 Ordered by an unspecified provider. Historical Provider [facility] BERNSTEIN Final Result documented in this encounter Visit Diagnoses Not on filedocumented in this encounter Care Teams Personnel Worker Relationship Specialty Start Date End Date Minor Tena MD [address] [place] [address] PCP - General 03/03/14 04/16/23 Matt Winchester DO [address] [place] [address] [address] [place] [address] PCP - General Family Medicine 04/17/23 03/25/25 Miscellaneous, Not In File PCP - General 03/26/25 Rahat Machado NP [address] [place] [address] [address] [place] [address] PCP - General Family Medicine 04/15/25 documented as of this encounter
--- OUTSIDE RECORDS SUMMARY | 2025-07-23 02:08 | XMS_ITS | Encounter Summary ---
Author Organization [facility] Address [address] [place] [address] Phone Care Team Providers Care Community Health Program Coordinator Name Role Phone Minor Tena MD Primary Care Provider [phone] Matt Winchester DO Primary Care Provider [phone] Miscellaneous, Not In File Primary Care Provider Unavailable Rahat Haynes NP Primary Care Provider [phone] Encounter Details Date Type Department Care Team (Late st Contact Info) Description 12/10/2016 Orders Only [facility] Provider, MD Johnnie [address] [place] [address] Social History Tobacco Use Types Packs/Day Years Used Date Smoking Tobacco: Never Assessed Sex and Gender Information Value Date Recorded Sex Assigned at Not on file Legal Sex Male 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 Historical Provider [facility] BERNSTEIN Final Result documented in this encounter Visit Diagnoses Not on filedocumented in this encounter Care Teams Community Health Program Coordinator Relationship Specialty Start Date End Date Minor Tena MD [address] [place] [address] PCP - General 03/03/14 04/16/23 Matt Winchester DO [address] [place] [address] [address] [place] [address] PCP - General Family Medicine 04/17/23 03/25/25 Miscellaneous, Not In File PCP - General 03/26/25 Rahat Machado NP [address] [place] [address] [address] [place] [address] PCP - General Family Medicine 04/15/25 documented as of this encounter
--- OUTSIDE RECORDS SUMMARY | 2025-07-23 02:08 | XMS_ITS | Encounter Summary ---
Author Organization [facility] Address [address] [place] [address] Phone Care Team Providers Care Emblem Maker Name Role Phone Minor Tena MD Primary Care Provider [phone] Matt Winchester DO Primary Care Provider [phone] Miscellaneous, Not In File Primary Care Provider Unavailable Rahat Haynes NP Primary Care Provider [phone] Encounter Details Date Type Department Care Team (Late st Contact Info) Description 11/30/2016 Orders Only [facility]INCON[facility] Provider, MD Johnnie [address] [place] [address] Social History Tobacco Use Types Packs/Day Years Used Date Smoking Tobacco: Never Assessed Sex and Gender Information Value Date Recorded Sex Assigned at Not on file Legal 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 Historical Provider [facility] ISACC BERNSTEIN Final Result documented in this encounter Visit Diagnoses Not on filedocumented in this encounter Care Teams Emblem Maker Relationship Specialty Start Date End Date Minor Tena MD [address] [place] [address] PCP - General 03/03/14 04/16/23 Matt Winchester DO [address] [place] [address] [address] [place] [address] PCP - General Family Medicine 04/17/23 03/25/25 Miscellaneous, Not In File PCP - General 03/26/25 Rahat Machado NP [address] [place] [address] [address] [place] [address] PCP - General Family Medicine 04/15/25 documented as of this encounter
--- OUTSIDE RECORDS SUMMARY | 2025-07-23 02:08 | XMS_ITS | Encounter Summary ---
Author Organization [facility] Address [address] [place] [address] Phone Care Team Providers Care Rigging Slinger Name Role Phone Minor Tena MD Primary Care Provider [phone] Matt Winchester DO Primary Care Provider [phone] Miscellaneous, Not In File Primary Care Provider Unavailable Rahat Haynes NP Primary Care Provider [phone] Encounter Details Date Type Department Care Team (Late st Contact Info) Description 06/11/2016 Orders Only [facility] Provider, MD Johnnie [address] [place] [address] Social History Tobacco Use Types Packs/Day Years Used Date Smoking Tobacco: Never Assessed Sex and Gender Information Value Date Recorded Sex Assigned at Not on file Legal 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 Historical Provider [facility] ISACC BERNSTEIN Final Result documented in this encounter Visit Diagnoses Not on filedocumented in this encounter Care Teams Rigging Slinger Relationship Specialty Start Date End Date Minor Tena MD [address] [place] [address] PCP - General 03/03/14 04/16/23 Matt Winchester DO [address] [place] [address] [address] [place] [address] PCP - General Family Medicine 04/17/23 03/25/25 Miscellaneous, Not In File PCP - General 03/26/25 Rahat Machado NP [address] [place] [address] [address] [place] [address] PCP - General Family Medicine 04/15/25 documented as of this encounter
--- OUTSIDE RECORDS SUMMARY | 2025-07-23 02:08 | XMS_ITS | Encounter Summary ---
Author Organization [facility] Address [address] [place] [address] Phone Care Team Providers Care Professor Of Biblical Studies Name Role Phone Minor Tena MD Primary Care Provider [phone] Matt Winchester DO Primary Care Provider Miscellaneous, Not In File Primary Care Provider Unavailable Rahat Haynes NP Primary Care Provider [phone] Encounter Details Date Type Department Care Team (Late st Contact Info) Description 01/04/2017 Orders Only [facility] Provider, MD Johnnie [address] [place] [address] Social History Tobacco Use Types Packs/Day Years Used Date Smoking Tobacco: Never Assessed Sex and Gender Information Value Date Recorded Sex Assigned at Not on file Legal Sex Male 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 Historical Provider [facility] ISACC BERNSTEIN Final Result documented in this encounter Visit Diagnoses Not on filedocumented in this encounter Care Teams Professor Of Biblical Studies Relationship Specialty Start Date End Date Minor Tena MD [address] [place] [address] PCP - General 03/03/14 04/16/23 Matt Winchester DO [address] [place] [address] [address] [place] [address] PCP - General Family Medicine 04/17/23 03/25/25 Miscellaneous, Not In File PCP - General 03/26/25 Rahat Machado NP [address] [place] [address] [address] [place] [address] PCP - General Family Medicine 04/15/25 documented as of this encounter
--- OUTSIDE RECORDS SUMMARY | 2025-07-23 02:08 | XMS_ITS | Encounter Summary ---
Author Organization [facility] Address [address] [place] [address] Phone Care Team Providers Care Radiological Defense Officer Name Role Phone Minor Tena MD Primary Care Provider [phone] Matt Winchester DO Primary Care Provider [phone] Miscellaneous, Not In File Primary Care Provider Unavailable Rahat Haynes NP Primary Care Provider [phone] Encounter Details Date Type Department Care Team (Late st Contact Info) Description 12/27/2016 Orders Only [facility]IN[facility] Provider, MD Johnnie [address] [place] [address] Social History Tobacco Use Types Packs/Day Years Used Date Smoking Tobacco: Never Assessed Sex and Gender Information Value Date Recorded Sex Assigned at Not on file Legal Sex Male 3:18 AM CMO Gender Identity Male 11/20/2023 1:33 PM CDT Sexual Orientation Straight 11/20/2023 1: 33 PM CDT documented as of this encounter Plan of Treatment Not on file documented as of this encounter Procedures Procedure Name Priority Date/Time Associated Diagnosis Comments CARDIOLOGY REPORT 12/27/2016 documented in this encounter Results * CARDIOLOGY REPORT (12/27/2016) Anatomical Region Laterality Modality Other Narrative 12/27/2016 Ordered by an unspecified provider. Historical Provider [facility]ACC BERNSTEIN Final Result documented in this encounter Visit Diagnoses Not on filedocumented in this encounter Care Teams Radiological Defense Officer Relationship Specialty Start Date End Date Minor Tena MD [address] [place] [address] PCP - General 03/03/14 04/16/23 Matt Winchester DO [address] [place] [address] [address] [place] [address] PCP - General Family Medicine 04/17/23 03/25/25 Miscellaneous, Not In File PCP - General 03/26/25 aRhat Machado NP [address] [place] [address] [address] [place] [address] PCP - General Family Medicine 04/15/25 documented as of this encounter
--- OUTSIDE RECORDS SUMMARY | 2025-07-23 02:08 | XMS_ITS | Encounter Summary ---
Author Organization [facility] Address [address] [place] [address] Phone Care Team Providers Care Energy Management Specialist Name Role Phone Rahat Haynes NP Primary Care Provider [phone] Encounter Details Date Type Department Care Team (Late st Contact Info) Description 07/15/[address] [facility] Medicine Cardiology [address] [facility] Advanced Medicine 8th [place] [address] [place] [address] Kiah Freire MD [address] [place] [address] Social History Tobacco Use Types Packs/Day Years Used Date Smoking Tobacco: Former Cigarettes 1 22 0 08/12/1986 - 2008 Smokeless Tobacco: Never Alcohol Use Standard Drinks/Week Comments Yes 0 (1 standard drink = 0.6 oz pur e alcohol) once a month AUDIT-C Answer Date Recorded Q1: How often do you have a drink containing alcohol? Never 12/12/2023 Q2: How many drinks containi ng alcohol do you have on a typical day when you are drinking? Patient does not drink Q3: How often do you have si x or more drinks on one occasion? Never 12/12/2023 Personal Safety Answer Date Recorded Have you ever been in or are you currently in a harmful physical or emotional relationship or is someone making you feel afraid or unsafe? Denies 12/12/2023 Sex and Gender Information Value Date Recorded Sex Assigned at Not on file Legal Sex Male 3:18 AM UPHOLSTERER INSIDE Gender Identity Male 11/20/2023 1:33 PM CDT Sexual Orientation Straight 11/20/2023 1: 33 PM CDT documented as of this encounter Miscellaneous Notes * Telephone Encounter - Miley Macias RN - 07/15/2025 2:59 PM CST Letter written and faxed to GI at [facility]. LSTERER INSIDE * Telephone Encounter - Liza Perez RMA - 07/15/2025 1:33 PM UPHOLSTERER INSIDE Last INR was 07/12/25 and was 2.3 They are needing you to call or fax instructions on patients warfarin for upcoming procedure (if heneeds to hold warfarin) LSTERER INSIDE * Telephone Encounter - Aaron Fernandez - 07/15/2025 1:09 PM CST It looks like the INRs are now managed by . Thank you, Aaron LSTERER INSIDE * Telephone Encounter - Karma Alanis - 07/15/2025 12:55 PM CST Mouna Smith states she got the device clearance but is also needing instructions for warfarin. Please Faxto [phone] LSTERER INSIDE documented in this encounter Plan of Treatment Not on file documented as of this encounter Visit Diagnoses Not on filedocumented in this encounter Care Teams Energy Management Specialist Relationship Specialty Start Date End Date Rahat Haynes NP [facility] [facility] [place] [address] PCP - General Family Medicine 04/15/25 documented as of this encounter
--- OUTSIDE RECORDS SUMMARY | 2025-07-23 02:08 | XMS_ITS | Encounter Summary ---
Author Organization [facility] Address [address] [place] [address] Phone Care Team Providers Care Agency Development Manager Name Role Phone Minor Tena MD Primary Care Provider [phone] Matt Winchester DO Primary Care Provider [phone] Miscellaneous, Not In File Primary Care Provider Unavailable Rahat Haynes NP Primary Care Provider [phone] Encounter Details Date Type Department Care Team (Late st Contact Info) Description 10/06/2016 Orders Only [facility] Provider, MD Johnnie [address] [place] [address] Social History Tobacco Use Types Packs/Day Years Used Date Smoking Tobacco: Never Assessed Sex and Gender Information Value Date Recorded Sex Assigned at Not on file Legal Sex Male 3:18 AM CVIR TECH Gender Identity Male 11/20/2023 1:33 PM CDT Sexual Orientation Straight 11/20/2023 1: 33 PM CDT documented as of this encounter Plan of Treatment Not on file documented as of this encounter Procedures Procedure Name Priority Date/Time Associated Diagnosis Comments CARDIOLOGY REPORT 10/06/2016 documented in this encounter Results * CARDIOLOGY REPORT (10/06/2016) Anatomical Region Laterality Modality Other Narrative 10/06/2016 Ordered by an unspecified provider. Historical Provider [facility] BERNSTEIN Final Result documented in this encounter Visit Diagnoses Not on filedocumented in this encounter Care Teams Agency Development Manager Relationship Specialty Start Date End Date Minor Tena MD [address] [place] [address] PCP - General 03/03/14 04/16/23 Matt Winchester DO [address] [place] [address] [address] [place] [address] PCP - General Family Medicine 04/17/23 03/25/25 Miscellaneous, Not In File PCP - General 03/26/25 Rahat Machado NP [address] [place] [address] [address] [place] [address] PCP - General Family Medicine 04/15/25 documented as of this encounter
--- OUTSIDE RECORDS SUMMARY | 2025-07-23 02:08 | XMS_ITS | Encounter Summary ---
Author Organization [facility] Address [address] [place] [address] Phone Care Team Providers Care Parimutuel Ticket Cashier Name Role Phone Minor Tena MD Primary Care Provider [phone] Matt Winchester DO Primary Care Provider [phone] Miscellaneous, Not In File Primary Care Provider Unavailable Rahat Haynes NP Primary Care Provider [phone] Encounter Details Date Type Department Care Team (Late st Contact Info) Description 09/06/2017 Orders Only [facility] Provider, MD Johnnie [address] [place] [address] Social History Tobacco Use Types Packs/Day Years Used Date Smoking Tobacco: Former Sex and Gender Information Value Date Recorded Sex Assigned at Not on file Legal Sex Male 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 Historical Provider [facility] BERNSTEIN Final Result documented in this encounter Visit Diagnoses Not on filedocumented in this encounter Care Teams Parimutuel Ticket Cashier Relationship Specialty Start Date End Date Minor Tena MD [address] [place] [address] PCP - General 03/03/14 04/16/23 Matt Winchester DO [address] [place] [address] [address] [place], [place] [address] PCP - General Family Medicine 04/17/23 03/25/25 Miscellaneous, Not In File PCP - General 03/26/25 Rahat Machado NP [address] [place] [address] [address] [place] [address] PCP - General Family Medicine 04/15/25 documented as of this encounter
--- OUTSIDE RECORDS SUMMARY | 2025-07-23 02:08 | XMS_ITS | Encounter Summary ---
Author Organization [facility] Care Team Providers Care Retail Receiving Clerk Name Role Phone Minor Tena MD Primary Care Provider [phone] Matt Winchester DO Primary Care Provider [phone] Miscellaneous, Not In File Primary Care Provider Rahat Land NP Primary Care Provider [phone] Encounter Details Date Type Department Care Team (Latest Contact Info) Description 12/28/2014 Orders Only [facility] CLINCONV Scanning, Provider Social History Tobacco Use Types Packs/Day Years Used Date Smoking Tobacco: Never Assessed Sex and Gender Information Value Date Recorded Sex Assigned at Not on file Legal Sex Male 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 Gender Identity Male 11/20/2023 1:33 PM CDT Sexual Orientation Straight 11/20/2023 1: 33 PM CDT documented as of this encounter Plan of Treatment Not on file documented as of this encounter Procedures Procedure Name Priority Date/Time Associated Diagnosis Comments CARDIAC CATH PRESSURE REPORT 12/28/2014 CARDIAC SECURITY INSTALLATION TECHNICIAN MEDS REPORT 12/28/2014 documented in this encounter Results * CARDIAC CATH PRESSURE REPORT (12/28/2014) Anatomical Region Laterality Modality X-Ray Angiograph y us Provider Scanning CV CARDIAC CATH PROCEDURES Fin al Result * CARDIAC SECURITY INSTALLATION TECHNICIAN MEDS REPORT (12/28/2014) Anatomical Region Laterality Modality X-Ray Angiograph y us Provider Scanning CV CARDIAC CATH PROCEDURES Fin al Result documented in this encounter Visit Diagnoses Not on filedocumented in this encounter Care Teams Retail Receiving Clerk Relationship Specialty Start Date End Date Minor Tena MD [address] [place] [address] PCP - General 03/03/14 04/16/23 Matt Winchester DO [address] [place] [address] [address] [place] [address] PCP - General Family Medicine 04/17/23 03/25/25 Miscellaneous, Not In File PCP - General 03/26/25 Rahat Machado NP [address] [place] [address] [address] [place] [address] PCP - General Family Medicine 04/15/25 documented as of this encounter
--- OUTSIDE RECORDS SUMMARY | 2025-07-23 02:08 | XMS_ITS | Encounter Summary ---
Author Organization [facility] Address [address] [place] [address] Phone Care Team Providers Care Kaiwhakahaere Name Role Phone Minor Tena MD Primary Care Provider [phone] Matt Winchester DO Primary Care Provider [phone] Miscellaneous, Not In File Primary Care Provider Unavailable Rahat Haynes NP Primary Care Provider [phone] Encounter Details Date Type Department Care Team (Late st Contact Info) Description 10/26/2016 Orders Only [facility] Provider, MD Johnnie [address] [place] [address] Social History Tobacco Use Types Packs/Day Years Used Date Smoking Tobacco: Never Assessed Sex and Gender Information Value Date Recorded Sex Assigned at Not on file Legal Sex Male 3:18 AM GRAVITY MANAGER Gender Identity Male 11/20/2023 1:33 PM CDT Sexual Orientation Straight 11/20/2023 1: 33 PM CDT documented as of this encounter Plan of Treatment Not on file documented as of this encounter Procedures Procedure Name Priority Date/Time Associated Diagnosis Comments CARDIOLOGY REPORT 10/26/2016 documented in this encounter Results * CARDIOLOGY REPORT (10/26/2016) Anatomical Region Laterality Modality Other Narrative 10/26/2016 Ordered by an unspecified provider. Historical Provider [facility] BERNSTEIN Final Result documented in this encounter Visit Diagnoses Not on filedocumented in this encounter Care Teams Kaiwhakahaere Relationship Specialty Start Date End Date Minor Tena MD [address] [place] [address] PCP - General 03/03/14 04/16/23 Matt Winchester DO [address] [place] [address] [address] [place] [address] PCP - General Family Medicine 04/17/23 03/25/25 Miscellaneous, Not In File PCP - General 03/26/25 Rahat Machado NP [address] [place] [address] [address] [place] [address] PCP - General Family Medicine 04/15/25 documented as of this encounter
--- OUTSIDE RECORDS SUMMARY | 2025-07-23 02:08 | XMS_ITS | Encounter Summary ---
Author Organization [facility] Address [address] [place] [address] Phone Care Team Providers Care Director Of Conservation Name Role Phone Minor Tena MD Primary Care Provider [phone] Matt Winchester DO Primary Care Provider [phone] Miscellaneous, Not In File Primary Care Provider Unavailable Rahat Haynes NP Primary Care Provider [phone] Encounter Details Date Type Department Care Team (Late st Contact Info) Description 11/26/2016 Orders Only [facility] Provider, MD Johnnie [address] [place] [address] Social History Tobacco Use Types Packs/Day Years Used Date Smoking Tobacco: Never Assessed Sex and Gender Information Value Date Recorded Sex Assigned at Not on file Legal Sex Male 3:18 AM 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 Historical Provider [facility] ISACC BERNSTEIN Final Result documented in this encounter Visit Diagnoses Not on filedocumented in this encounter Care Teams Director Of Conservation Relationship Specialty Start Date End Date Minor Tena MD [address] [place] [address] PCP - General 03/03/14 04/16/23 Matt Winchester DO [address] [place] [address] [address] [place] [address] PCP - General Family Medicine 04/17/23 03/25/25 Miscellaneous, Not In File PCP - General 03/26/25 Rahat Machado NP [address] [place] [address] [address] [place] [address] PCP - General Family Medicine 04/15/25 documented as of this encounter
--- OUTSIDE RECORDS SUMMARY | 2025-07-23 02:08 | XMS_ITS | Encounter Summary ---
Author Organization [facility] Address [address] [place] [address] Phone Care Team Providers Care Mirror Framer Name Role Phone Minor Tena MD Primary Care Provider [phone] Matt Winchester DO Primary Care Provider [phone] Miscellaneous, Not In File Primary Care Provider Unavailable Rahat Haynes NP Primary Care Provider [phone] Encounter Details Date Type Department Care Team (Late st Contact Info) Description 12/26/2015 Orders Only [facility]IN[facility] Provider, MD Johnnie [address] [place] [address] Social History Tobacco Use Types Packs/Day Years Used Date Smoking Tobacco: Never Assessed Sex and Gender Information Value Date Recorded Sex Assigned at Not on file Legal 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 Historical Provider [facility] ISACC BERNSTEIN Final Result documented in this encounter Visit Diagnoses Not on filedocumented in this encounter Care Teams Mirror Framer Relationship Specialty Start Date End Date Minor Tena MD [address] [place] [address] PCP - General 03/03/14 04/16/23 Matt Winchester DO [address] [place] [address] [address] [place] [address] PCP - General Family Medicine 04/17/23 03/25/25 Miscellaneous, Not In File PCP - General 03/26/25 Rahat Machado NP [address] [place] [address] [address] [place] [address] PCP - General Family Medicine 04/15/25 documented as of this encounter
--- OUTSIDE RECORDS SUMMARY | 2025-07-23 02:09 | XMS_ITS | Clinical Summary ---
Author Organization [facility] Address [address] [place] [address] Care Team Providers Care Ethylbenzene Converter Helper Name Role Phone Unavailable Primary Care Provider Unavailabl e Immunizations Immunization Administration Dates Next Due Covid-19, Mrna, Lnp-s, Pf, 30 Mcg/0.3 Ml Dose (P fizer) 07/14/2021 Social History Tobacco Use Types Packs/Day Years Used Date Smoking Tobacco: Never Assessed Sex and Gender Information Value Date Recorded Sex Assigned at Not on file Legal Sex Male 11:52 PM CDT Gender Identity Not on file Sexual Orientation Not on file Plan of Treatment Health Maintenance Due Date Last Done Comments Hepatitis C Virus (HCV) Screening 1970 TdaP Immunization 1970 Hepatitis B Immunization (1 of 3 - 19+ 3-dose series) 12/23/1990 Cologuard 12/23/2016 Colonoscopy 12/23/2016 Colorectal Cancer Screening 12/23/2016 Immunochemical Fecal Occult Blood 12/23/2016 Pneumococcal Immunization (5 0+ years) (1 of 1 - PCV) 12/23/2021 Zoster Immunization (1 of 2) 12/23/2021 Influenza Immunization (#1) 04/12/202506/12, 06/05/2020, 08/22/2019 SARS-COV-2 Immunization ( - 2024- season) 2025 07/14/2021, 11/05/2020, 10/13/2020 Respiratory Syncytial Virus (RSV) Immunization (Adult) (1 - 1-dose 75+ series) 12/23/2046 Human Papillomavirus (HPV) Immunization (No Doses Required) Completed Meningococcal Immunization (ACWY) Aged Out No longer eligible b ased on patient's age to complete this topic Rotavirus Immunization Aged Out No lo nger eligible based on patient's age to complete this topic
--- OUTSIDE RECORDS SUMMARY | 2025-07-23 02:09 | XMS_ITS | Clinical Summary ---
Author Organization [facility] Address [address] [place] [address] Care Team Providers Care Metal Finisher Name Role Phone Rahat Haynes NP Primary Care Provider [phone] Allergies No known active allergies Medications venlafaxine XR (EFFEXOR-XR) 75 mg 24 hr capsuleIndicati ons:Anxiety with Depression Take 1 capsule (75 mg total) by mouth director of physical security before breakfast 1 Active FeroSuL 325 mg (65 mg iron) tablet Take 1 tablet (325 mg total) by mouth nightly 3 Active Ozempic 0.25 mg or 0.5 mg (2 mg/3 mL) pen injector injectionIndica tions:type 2 diabetes mellitus Inject 0.5 mg under the skin once a week Saturday 3 Active levothyroxine (SYNTHROID) 75 mcg tabletIndicatio ns:hypothyroidi sm Take 1 tablet (75 mcg total) by mouth director of physical security before breakfast 3 Active ascorbic acid (vitamin C) 100 mg tabletIndicatio ns:Vitamin C Deficiency Take 1 tablet (100 mg total) by mouth nightly Active acetaminophen (TYLENOL) 325 mg tabletIndicatio ns:Fever,Pain Take 2 tablets (650 mg total) by mouth every 4 (four) hours as needed for pain 3 Active atorvastatin (LIPITOR) 10 mg tabletIndicatio ns:hyperlipidem ia Take 0.5 tablets (5 mg total) by mouth every morning 3 Active metFORMIN (FORTAMET) 1,000 mg 24 hr tabletIndicatio ns:type 2 diabetes mellitus Take 1 tablet (1,000 mg total) by mouth 2 (two) times a day 3 06/14/20 Active allopurinoL (ZYLOPRIM) 300 mg tabletIndicatio ns:prevention of acute gout attack Take 1 tablet (300 mg total) by mouth every morning 3 06/13/20 26 Active magnesium gluconate 200 mg tabletIndicatio ns:hypomagnesem ia Take 1 tablet (200 mg total) by mouth director of physical security before breakfast Active pimecrolimus (ELIDEL) 1 % cream APPLY TOPICALLY TO AFFECTED AREA TWICE DAILY 4 Active warfarin (COUMADIN) 1 mg tablet TAKE 4 TABLETS BY MOUTH ONCE DAILY along with the 5mg tablet to make 9mg daily. 360 tablet 3 4 Active warfarin (COUMADIN) 5 mg tabletIndicatio ns:Atrial Flutter TAKE 1 to 2 TABLETS BY MOUTH ONCE DAILY OR DIRECTED based on INR results. Take along with 1mg tablets to make desired dose. 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 Likely related to trauma as no e/o infection. Little relief with uroject. Pain improved with pyridium. Tetralogy of Fallot 07/24/2023 Assessment & Plan (07/24/2023 8:16 PM TOPPER PRESS OPERATOR AUTOMATIC): Hx of Tetralogy fo Fallot s/p Dr. Staley repair [facility]' and patch closure of VSD and infundibulectomy, stent to the RVOT LVEDP of 14, attempted Lila valve placement with embolization to left pulmonary artery. ICD placed 12/2015 with dual-chamber Biotronik [place]. Hypomagnesemia 07/24/2023 Assessment & Plan (07/24/2023 8:27 PM TOPPER PRESS OPERATOR AUTOMATIC): Relative hypomagnesemia at 1.8 < goal 2.0. Repleted prn Skin abrasion 07/24/2023 Assessment & Plan (07/24/2023 8:30 PM TOPPER PRESS OPERATOR AUTOMATIC): Abrasion to pelvic skin at site of shaved hair for ablation. No e/o infection. 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 -Resume home metformin, glimepiride, ozempic History of tetralogy of Fallot repair 02/23/2014 Overview (03/17/2018): Tetralogy of Fallot s/p repair Tobacco use and exposure - finding 02/23/2014 Overview (11/17/2016): H/O tobacco use, presenting hazards to health Atrial flutter 02/23/2014 Assessment & Plan (07/25/2023 6:33 PM TOPPER PRESS OPERATOR AUTOMATIC): Presented 07/24 for ablation. Prior tx with amio dc 03/2017 d/t thyroid toxicity, prior RA flutter ablation 06/04/2018. In Fall 2022 had 25% burden of atrial arrythmia and so planned for ablation. JAMILA 07/24 w/o thrombus. Underwent ablation via R femoral VEIN - 8F, 8F. L femoral VEIN - 7F, 7F with closure via Vascade and manual pressure for atyipical RA atrial flutter w/o complication. -Cont home metoprolol -Resumed home warfarin in AM (when takes at home), goal INR 2-2.3; Takes 8mg Sat/Saturday, otherwise 10mg daily. -Eval by EP this AM. Ok for discharge -Discussed monitoring, activity restrictions, reasons to call with pt. Verbalized understanding. -Follow up arranged Shortness of breath 02/23/2014 Overview (11/17/2016): Dyspnea Palpitations 02/23/2014 Overview (11/17/2016): Palpitations Dyslipidemia 02/23/2014 Overview (11/17/2016): Dyslipidemia Encounters Date Type Department Care Team Description 07/15/2025 Telephone [facility] Medicine Cardiology [address] [facility] 8th [place] [address] [place] [address] Lorraine Toney MD 07/15/2025 Telephone [facility] Cardiology [address] [facility] 8th [place] [address] [place] [address] Kiah Freire MD 07/12/2025 Anticoagulation Telephone Call [facility] Cardiology [address] [place] [address] [address] [place] [address] Lorraine Toney MD 07/05/2025 Anticoagulation Telephone Call [facility] Cardiology [address] [place] [address] [address] [place] [address] Lorraine Toney MD 07/02/2025 Telephone [facility] Cardiology [facility] [facility] 8th [place] [address] [place] [address] Kiah Freire MD 06/22/2025 Remote Device Check [facility] Cardiology [address] [facility] [address] [place] [address] Kiah Freire MD 06/14/2025 Anticoagulation Telephone Call [facility] Cardiology [address] [place] [address] 8th [place] [address] [place] [address] Lorraine Toney MD Atypical atrial flutter (HCC) (Primary Dx) 06/01/2025 Anticoagulation Telephone Call [facility] Cardiology [address] [place] [address] 8th [place] [address] [place] [address] Lorraine Toney MD Atypical atrial flutter (HCC) (Primary Dx) 05/17/2025 Anticoagulation Telephone Call [facility] Cardiology [address] [place] [address] 8th [place] [address] [place] [address] Lorraine Toney MD Atypical atrial flutter (HCC) (Primary Dx) 05/16/2025 Orders Only [facility] Scanning, Provider 05/03/2025 Anticoagulation Telephone Call [facility] Cardiology [address] [place] [address] 8th [place] [address] [place] [address] Lorraine Toney MD Atypical atrial flutter (HCC) (Primary Dx) 05/02/2025 Orders Only [facility] Scanning, Provider 04/26/2025 8:31 AM CDT - 04/26/2025 11:59 PM CDT Hospital Encounter [facility] [address] [place] [address] Lorraine Toney MD Tetralogy of Fallot; History of tetralogy of Fallot repair; Nonrheumatic pulmonary valve insufficiency; Ascending aorta dilation Discharge Disposition: Discharge to home or self care from Last 3 Months Immunizations Immunization Administration Dates Next Due Influenza, Quadrivalent, Spl it, Preservative Free, Intramuscular 06/05/2018(Deferred: Patient Refused) Influenza, Unspecified 05/17/2023 Surgical History Surgery Date Site/Laterality Comments AL COMPL RPR TETRALOGY FALLOT W/O PULM ATRESIA 08/12/1974 - 08/11/1975 Complete Tetralogy Of Fallot Repair - (Added by TW Conv)- s/p patch closure of VSD and infundibulectomy; s/p stent to the RVOT LVEDP of 14; attempted Lila valve placement with embolization of L pulmonary artery/ Dr Staley AL REPLACEMENT PULMONARY VALVE 02/09/2015 - 03/11/2015 Pulmonary Valve Replacement - (Added by TW Conv)- 27mm Bovine pericardial valve/ Dr Rocha-surgery included ligation of the aoritc PA collaterals CARDIOVERSION 02/09/2015 - 03/11/2015 CARDIAC DEFIBRILLATOR PLACEMENT 08/12/2015 - 08/11/2016 [employer] Suzi LUOT APPENDECTOMY 08/12/1990 - 08/11/1991 CARDIAC CATHETERIZATION multiple-- last 2014 ABLATION 08/12/2022 - 08/11/[id number] Medical History Medical History Date Comments Rbbb DM2 (diabetes mellitus, type 2) Hyperlipidemia Gout PVC's (premature ventricular contractions) Atrial flutter (HCC) Paroxysmal atrial flutter NICM (nonischemic cardiomyopathy) (HCC) Hypothyroidism Sleep apnea 2014 slight- no CPA P device recommended per pt report Motion sickness Family History Medical History Relation Name Comments Arthritis Father Itz Catherine Coronary artery disease Father Itz Catherine Fami ly history of coronary artery disease - (Added by TW Conv)/Family history of coronary artery disease - (Added by TW Conv) Diabetes Father Itz Catherine Diabetes mellit us; /Family history of diabetes mellitus (DM) - 2 sisters (Added by TW Conv) Heart attack Father Itz Catherine Heart disease Father Itz Catherine CABG in his 50 s Hyperlipidemia Father Itz Catherine Family histor y of hyperlipidemia - (Added by TW Conv) Hypertension Father Itz Catherine Family history of hypertension - (Added by TW Conv) Arthritis Mother Chantal Catherine Coronary artery disease Mother Chantal Catherine F amily history of coronary artery disease - (Added by TW Conv)/Family history of coronary artery disease - (Added by TW Conv) Diabetes Mother Chantal Catherine Family histo ry of diabetes mellitus (DM) - 2 sisters (Added by TW Conv) Diabetes type II Mother Chantal Catherine Diabetes mellitus type 2; Heart disease Mother Chantal Catherine Hyperlipidemia Mother Chantal Catherine Family his tory of hyperlipidemia - (Added by TW Conv) Hypertension Mother Chantal Catherine Hypertension ; /Family history of hypertension - (Added by TW Conv) Kidney disease Mother Chantal Catherine Stroke Mother Chantal Catherine in her 50s Sleep apnea Other Obstructive sle ep apnea - (Added by TW Conv) Hypertension Sister 1 Family history of hypertension - (Added by TW Conv) Diabetes Sister 2 Family history of diabetes mellitus (DM) - 2 sisters (Added by TW Conv) Hyperlipidemia Sister 3 Family histor y of hyperlipidemia - (Added by TW Conv) Anesthesia problems Neg Hx Relation Name Status Comments Father Itz Catherine Mother Chantal Catherine Other Sister 1 Sister 2 Sister 3 Social History Tobacco Use Types Packs/Day Years Used Date Smoking Tobacco: Former Cigarettes 1 22 0 08/12/1986 - 2008 Smokeless Tobacco: Never Tobacco Cessation:Counseling Given: Not Answered Alcohol Use Standard Drinks/Week Comments Yes 0 [...] on file Legal Sex Male 3:18 AM TOPPER PRESS OPERATOR AUTOMATIC Gender Identity Male 11/20/2023 1:33 PM CDT Sexual Orientation Straight 11/20/2023 1: 33 PM CDT Last Filed Vital Signs Vital Sign Reading Time Taken Comments Blood Pressure 123/72 04/08/2025 12:39 PM CDT Pulse 71 04/08/2025 12:39 PM CDT Temperature 36.4 C (97.5 F) 12/12/2023 9:00 AM CDT Respiratory Rate 23 12/12/2023 10:30 AM CDT Oxygen Saturation 98% 04/08/2025 12:39 PM CDT Inhaled Oxygen Concentration - - Weight 76.9 kg (169 lb 9.6 oz) 04/08/2025 12:39 PM CDT Height 170.2 cm (5' 7) 04/08/2025 12:39 PM CDT Body Mass Index 26.56 04/08/2025 12:39 PM CDT Plan of Treatment Health Maintenance Due Date Last Done Comments Albumin Creatinine Ratio, Urine 1971 Colon Cancer Screening-Colonoscopy 1971 Depression Screening 1971 Hepatitis C Screening 1971 Prostate Cancer Screening-PSA 1971 Dilated Eye Exam 1971 Foot Exam 1971 DTaP/Tdap/Td Vaccine (1 - Tdap) 12/23/1982 Hepatitis B Screening 12/23/1989 Regular Well Visit/Exam 18-64 12/23/1989 Pneumococcal vaccine <65 (1 of 2 - PCV) 12/23/1990 Lipid Panel 12/29/2015 12/28/2014 Zoster Vaccine (1 of 2) 12/23/2021 Hemoglobin A1C 01/22/2024 07/23/2023 eGFR 12/11/2024 12/12/2023, 07/12, 07/24/2023, Additional history exists Covid-19 Vaccine ( - 2024-2 6 season) 2025 07/14/2021, 11/05/2020, 10/13/2020 Influenza Vaccine (#1) 2025 , 06/24/2021, 08/22/2019, Additional history exists Medical Devices Implanted Type Area Tank Maker Wood Device Identifier Shelf Expiration Date Model / Serial / Lot [employer] Defibrillator Cardiac Rivacor Promri Implantable Df4 Sterile Latex Free 7 Drt [id number] - [id number] - [id number] Implanted:Qty: 1 on 12/12/2023 by Kiah Freire MD at [facility] ICD Left: Chest Wall [employer]ik Inc 08/11/2025 [id number] / [id number] / [id number] [employer] Device Vascular Closure Femoral Artery Bioabsorbable Dual Method Vascade 6-7fr Collagen [id number] - [id number] Implanted:Qty: 1 on 07/24/2023 by Kiah Freire MD at [facility] Other - see comments [employer] 03/21/2025 [id number]- [id number] / / [id number] Description:Vascade closure device [employer] Vascade Mvp 6-12fr Venous Closure [id number] - [id number] Implanted:Qty: 1 on 07/24/2023 by Kiah Freire MD at [facility] Other - see comments [employer] 03/28/2025 [id number] [id number] / / [id number] 24A Description:Vascade closure device [employer] Vascade Mvp 6-12fr Venous Closure [id number] - [id number] Implanted:Qty: 1 on 07/24/2023 by Kiah Freire MD at [facility] Other - see comments [employer] 03/28/2025 [id number] [id number] / / [id number] [id number] Description:Vascade closure device [employer] Device Vascular Closure Femoral Artery Bioabsorbable Dual Method Vascade 6-7fr Collagen [id number] - [id number] Implanted:Qty: 1 on 07/24/2023 by Kiah Freire MD at [facility] Other - see comments [employer] 03/26/2025 [id number]- 05U / / [id number] [id number] Description:Vascade closure device Med[employer] Inc Tyrx Absorbable Antibacterial Envelope-Large 3.3x2.9in [id number] - [id number] - [id number] Implanted:Qty: 1 on 12/12/2023 by Kiah Freire MD at [facility] Other - see comments Left: Chest Wall [employer] Inc 09/13/2024 [id number] / [id number] / [id number] Description:Antibiotic Envel ope. Pacemaker/Defibr illator Heart Description:Pt thinks this w as placed in 2017 Prosthetic Valve-02/18/2015 Implanted:2014 (Quantity not on file) Heart Description:Aortic Pericardi al tissue heart valve Procedures Procedure Name Priority Date/Time Associated Diagnosis Comments PROTIME-INR Routine 07/12/2025 PROTIME-INR Routine 06/27/2025 DEVICE CHECK - REMOTE Routine 06/22/2025 PROTIME-INR Routine 06/13/2025 PROTIME-INR Routine 05/30/2025 PROTIME-INR Routine 05/16/2025 SCAN - LABS 05/16/2025 PROTIME-INR Routine 05/02/2025 SCAN - LABS 05/02/2025 CT HEART MORPHOLOGY W CONTRAST Schedule Routine, Read Routine (OP Routine) 04/26/2025 9:45 AM CDT Tetralogy of Fallot History of tetralogy of Fallot repair Nonrheumatic pulmonary valve insufficiency Ascending aorta dilation EGFR Routine 12/12/2023 6:40 AM CDT TOF (tetralogy of Fallot) SSS (sick sinus syndrome) (HCC) POCT HEMOGLOBIN A1C Routine 07/23/2023 8:53 AM TOPPER PRESS OPERATOR AUTOMATIC SERUM LIPID PANEL Routine 12/28/2014 8:0 1 PM CDT from Last 3 Months or Most Recently Relevant to Health Maintenance Results * (ABNORMAL) Protime-INR (07/12/2025) INR 2.30(A) 0.90 - 1.10 EXTERNAL LAB Blood 07/12/2025 us Historical Provider LAB BLOOD ORDERABLES Chanel l Result EXTERNAL LAB * (ABNORMAL) Protime-INR (06/27/2025) INR 2.80(A) 0.90 - 1.10 EXTERNAL LAB Blood 06/27/2025 Historical Provider LAB BLOOD ORDERABLES Chanel l Result EXTERNAL LAB * DEVICE CHECK - REMOTE (06/22/2025) Anatomical Region Laterality Modality Other 06/22/2025 06/22/2025 Narrative 07/05/2025 5:54 PM TOPPER PRESS OPERATOR AUTOMATIC Device Summary Remote interrogation of Biotronik ICD Date of Implant: December 12, 2023 Programmed Mode: DDDR-ADIR Lower Rate: 70 bpm Device Functionality Presenting rhythm: As-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 Longest 28 minutes. V rates during AF: avg 92 Two NS-SVT episodes. Fastest: 190 . Longest: 6 seconds Ramana RN, BSN Procedure Note Kiah Freire MD - 07/05/2025 Device Summary Remote interrogation of Biotronik ICD Date of Implant: December 12, 2023 Programmed Mode: DDDR-ADIR Lower Rate: 70 bpm Device Functionality Presenting rhythm: As-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 Longest 28 minutes. V rates during AF: avg 92 Two NS-SVT episodes. Fastest: 190 . Longest: 6 seconds Ramana RN, BSN Kiah Freire MD [facility] PROCEDURES Final Result * (ABNORMAL) Protime-INR (06/13/2025) INR 2.00(A) 0.90 - 1.10 EXTERNAL LAB Blood 06/13/2025 Lorraine Toney MD LAB BLOOD ORDERABLES Fi nal Result EXTERNAL LAB * (ABNORMAL) Protime-INR (05/30/2025) INR 2.70(A) 0.90 - 1.10 EXTERNAL LAB Blood 05/30/2025 Lorraine Toney MD LAB BLOOD ORDERABLES Fi nal Result Performing Organization Address City/[facility]/ZIP Co de Phone Number EXTERNAL LAB * SCAN - LABS (05/16/2025) Provider Scanning Final Result * (ABNORMAL) Protime-INR (05/16/2025) INR 2.30(A) 0.90 - 1.10 EXTERNAL LAB Blood 05/16/2025 Result [facility] Lorraine Toney MD LAB BLOOD ORDERABLES Fi nal Result Performing Organization Address [facility] Co de Phone Number EXTERNAL LAB * SCAN - LABS (05/02/2025) us Provider Scanning Final Result * (ABNORMAL) Protime-INR (05/02/2025) INR 2.60(A) 0.90 - 1.10 EXTERNAL LAB Blood 05/02/2025 Lorraine Toney MD LAB BLOOD ORDERABLES Fi nal Result Performing Organization Address City/[facility] Co de Phone Number EXTERNAL LAB * CT Heart Morphology W Contrast (04/26/2025 9:45 AM CDT) Anatomical Region Laterality Modality Chest N/A Computed Tomogra phy 04/26/2025 1:45 PM CDT Impressions 04/26/2025 4:38 PM CDT 1. Postsurgical changes of tetralogy of Fallot repair, including RVOT/VSD repair and bioprosthetic pulmonic valve replacement. 2. Within the limitations of the CT postprocessing software, dilated ventricles (RV EDVi 174 ml/m2, LV EDVi 123 mL/m2). Of note, the diastolic dimensions of the ventricles in short axis are similar to 2022. 3. Reduced right ventricular function (RVEF estimated as 39%). Visually, the RV function is mildly reduced. Normal left ventricular function (LVEF 56%). 4. Similar dilation of the main and branch pulmonary arteries. 5. Similar aortic root and ascending aorta dimensions. 6. Similar numerous aortopulmonary collaterals, including collaterals arising from the left circumflex coronary artery. Dictated by: Trent Leonardo M.D. The radiology attending physician has personally reviewed this study, and had reviewed and/or edited this written report and agrees with it. Electronically signed by: Grzegorz Hankins M.D. Narrative 04/26/2025 4:38 PM CDT EXAMINATION: CT HEART MORPHOLOGY W CONTRAST. 3-D reconstructions were also obtained. HISTORY: Congenital heart disease. Hx Tetralogy of Fallot, PV Repair, Lila Valve Protocol for severe PI. RV and LV dimensions, branch PA dimensions, aortic root and ascending aorta dimensions. TECHNIQUE: CT of the heart was performed with intravenous contrast using a retrospectively gated cardiac protocol after the administration of 90 mL Opti-Ray 350 intravenous contrast. Vascular 3D images, including functional analysis, were generated on a dedicated workstation and also interpreted. COMPARISON: 07/23/2023 FINDINGS: Postsurgical changes of tetralogy of Fallot repair with median sternotomy, right ventricular outflow tract repair, and VSD repair. A bioprosthetic pulmonic valve replacement is present. No prosthetic valve leaflet thickening. Numerous aortopulmonary collaterals (APCs), which are qualitatively similar in size and number since 2022. These include collaterals arising from the bronchial arteries, left subclavian artery, internal mammary arteries, celiac trunk, and the left circumflex (with associated coronary dilation) and draining into the branch pulmonary arteries with associated mixing artifact. The main and branch pulmonary arteries are tortuous and dilated. Mild aortic dilation. Right ventricular enlargement. Measurements, as below. Qualitatively, the sizes of the main/branch pulmonary arteries, ventricles, and aorta are similar to 2023. Normal segmental cardiac anatomy. One right sided SVC and right sided IVC. Left chest wall cardiac device in place with leads in the right ventricle. Normal atrial sizes. Normal atrioventricular concordance. Clockwise rotation the coronary sinuses/coronary ostia. Mild coronary artery calcification. No left atrial appendage thrombosis. No pericardial effusion. MEASUREMENTS: Z scores are not provided due to patient's age. PA: Similar to 2023 Main pulmonary artery: 51 x 41 mm, previously 51 x 42 mm. Right pulmonary artery: 37 x 34 mm, previously 38 x 35 mm. Left pulmonary artery: 42 x 47 mm, previously 42 x 47 mm. Aorta: Similar to 2023 Sinuses of Valsalva: 41 x 41 x 40 mm Sinotubular junction: 41 x 39 mm Ascending thoracic aorta: 44 x 44 mm, previously 44 x 43 mm when measured in a similar fashion Estimation of the size and function is limited by the CT post processing software. LV size and functional analysis: Mid cavity diastolic diameter in short axis: 65 x 55 mm, previously 67 x 53 mm LVEF: 56% End diastolic mass: 118 g Stroke volume 131 mL End diastolic volume 234 mL LV EDVI: 123 mL/sq m (normal values 47-92 mL/sq m) End systolic volume: 103 mL LV ESVI: 54 mL/sq m (normal value 11-31 mL/sq m) Cardiac output 9.0 L/min RV size and functional analysis: Mid diastolic diameter in short axis: 96 x 47 mm, previously 97 x 48 mm. RVEF 39% Stroke volume: 131 mL End diastolic volume 333 mL RV EDVI: 174 mL/sq m (normal 55-105 mL/sq m) End systolic volume 203 mL RV ESVI: 106 mL/sq m (normal 20-38 ml/ sq m) Cardiac output 9.0 L/m OTHER FINDINGS: Lungs are clear. No pulmonary nodule. No pleural effusion or pneumothorax. No mediastinal or hilar lymphadenopathy. Degenerative changes of the thoracic spine. Procedure Note Grzegorz Hankins MD - 04/26/2025 EXAMINATION: CT HEART MORPHOLOGY W CONTRAST. 3-D reconstructions were also obtained. HISTORY: Congenital heart disease. Hx Tetralogy of Fallot, PV Repair, Lila Valve Protocol for severe PI. RV and LV dimensions, branch PA dimensions, aortic root and ascending aorta dimensions. TECHNIQUE: CT of the heart was performed with intravenous contrast using a retrospectively gated cardiac protocol after the administration of 90 mL Opti-Ray 350 intravenous contrast. Vascular 3D images, including functional analysis, were generated on a dedicated workstation and also interpreted. COMPARISON: 07/23/2023 FINDINGS: Postsurgical changes of tetralogy of Fallot repair with median sternotomy, right ventricular outflow tract repair, and VSD repair. A bioprosthetic pulmonic valve replacement is present. No prosthetic valve leaflet thickening. Numerous aortopulmonary collaterals (APCs), which are qualitatively similar in size and number since 2022. These include collaterals arising from the bronchial arteries, left subclavian artery, internal mammary arteries, celiac trunk, and the left circumflex (with associated coronary dilation) and draining into the branch pulmonary arteries with associated mixing artifact. The main and branch pulmonary arteries are tortuous and dilated. Mild aortic dilation. Right ventricular enlargement. Measurements, as below. Qualitatively, the sizes of the main/branch pulmonary arteries, ventricles, and aorta are similar to 202. Normal segmental cardiac anatomy. One right sided SVC and right sided IVC. Left chest wall cardiac device in place with leads in the right ventricle. Normal atrial sizes. Normal atrioventricular concordance. Clockwise rotation the coronary sinuses/coronary ostia. Mild coronary artery calcification. No left atrial appendage thrombosis. No pericardial effusion. MEASUREMENTS: Z scores are not provided due to patient's age. PA: Similar to 2022 Main pulmonary artery: 51 x 41 mm, previously 51 x 42 mm. Right pulmonary artery: 37 x 34 mm, previously 38 x 35 mm. Left pulmonary artery: 42 x 47 mm, previously 42 x 47 mm. Aorta: Similar to 2022 Sinuses of Valsalva: 41 x 41 x 40 mm Sinotubular junction: 41 x 39 mm Ascending thoracic aorta: 44 x 44 mm, previously 44 x 43 mm when measured in a similar fashion Estimation of the size and function is limited by the CT post processing software. LV size and functional analysis: Mid cavity diastolic diameter in short axis: 65 x 55 mm, previously 67 x 53 mm LVEF: 56% End diastolic mass: 118 g Stroke volume 131 mL End diastolic volume 234 mL LV EDVI: 123 mL/sq m (normal values 47-92 mL/sq m) End systolic volume: 103 mL LV ESVI: 54 mL/sq m (normal value 11-31 mL/sq m) Cardiac output 9.0 L/min RV size and functional analysis: Mid diastolic diameter in short axis: 96 x 47 mm, previously 97 x 48 mm. RVEF 39% Stroke volume: 131 mL End diastolic volume 333 mL RV EDVI: 174 mL/sq m (normal 55-105 mL/sq m) End systolic volume 203 mL RV ESVI: 106 mL/sq m (normal 20-38 ml/ sq m) Cardiac output 9.0 L/m OTHER FINDINGS: Lungs are clear. No pulmonary nodule. No pleural effusion or pneumothorax. No mediastinal or hilar lymphadenopathy. Degenerative changes of the thoracic spine. IMPRESSION: 1. Postsurgical changes of tetralogy of Fallot repair, including RVOT/VSD repair and bioprosthetic pulmonic valve replacement. 2. Within the limitations of the CT postprocessing software, dilated ventricles (RV EDVi 174 ml/m2, LV EDVi 123 mL/m2). Of note, the diastolic dimensions of the ventricles in short axis are similar to 2022. 3. Reduced right ventricular function (RVEF estimated as 39%). Visually, the RV function is mildly reduced. Normal left ventricular function (LVEF 56%). 4. Similar dilation of the main and branch pulmonary arteries. 5. Similar aortic root and ascending aorta dimensions. 6. Similar numerous aortopulmonary collaterals, including collaterals arising from the left circumflex coronary artery. Dictated by: Trent Leonardo M.D. The radiology attending physician has personally reviewed this study, and had reviewed and/or edited this written report and agrees with it. Electronically signed by: Grzegorz Hankins M.D. Lorraine Toney MD IM CT PROCEDURES Final Result * eGFR (12/12/2023 6:40 AM CDT) eGFR >90 >=60 mL/min/1. 73 m2 Comment: Interpretive Data Reference Interval Normal >/= 90 mL/min/1.73m2 Mildly decreased* 60 - 89 mL/min/1.73m2 Mildly to moderately decreased 45 - 59 mL/min/1.73m2 Moderately to severely decreased 30 - 44 mL/min/1.73m2 Severely decreased 15 - 29 mL/min/1.73m2 Kidney Failure < 15 mL/min/1.73m2 *Relative to young adult level Estimated glomerular filtration rate is determined by the 2020 CKD-EPI equation recommended by the National Kidney Foundation (A Unifying Approach to GFR Estimation: Recommendations of the NKF-ASK Task Force on Reassessing the Inclusion of Race in Diagnosing Kidney Disease, JASN 202). The CKD-EPI equation should not be used for patients with unstable renal function and has not been validated in children and those over 70. Current interpretive data was last reviewed 2021. Blood 12/12/2023 6:40 AM CDT 12/12/2023 6:49 AM CDT Kiah Freire MD LAB BLOOD ORDERABLES Final Res ult Performing Organization Address [facility] [place] de Phone Number [facility] [place] [address] * (ABNORMAL) POCT hemoglobin A1c (07/23/2023 8:53 AM TOPPER PRESS OPERATOR AUTOMATIC) [facility] Hgb A1C, POC 5.8(H) 4.0 - 5.6 % [facility] Est Average Gluc POC 120 mg/dL [facility] Comment: The ADA recommends reporting an estimated Average Glucose (eAG) with all Hemoglobin A1c results using the equation derived from a study of 507 normal and diabetic adults. Minority populations were underrepresented and children were not included. (Diabetes Care 31:4219-2337, 2008). The eAG is not equivalent to a fasting glucose. Blood 07/23/2023 8:53 AM TOPPER PRESS OPERATOR [employer] 07/23/2023 8:53 AM TOPPER PRESS OPERATOR [employer] Kiah Freire MD POINT OF CARE TEST ORDERABLES Final Result Performing Organization Address [facility] [place] de Phone Number [facility] [place] [address] * Serum lipid panel (12/28/2014 8:01 PM CDT) Cholesterol 118 0 - 200 mg/dl HISTORICAL RESULTS Comment: Interpretive Data Desirable: <200 mg/dL Borderline high: 200-239 mg/dL High: >240 mg/dL Literature Reference: National Cholesterol Education Program (NCEP) Expert Panel on Detection, Evaluation, and Treatment of High Blood Cholesterol in Adults (Adult Treatment Panel III). Circulation 2004; 110:227. Current interpretive data was last revised on 2005. Triglycerides 61 0 - 150 mg/dl HISTORICAL RESULTS Comment: Interpretive Data Desirable: < 150 mg/dL Borderline High: 150 - 199 mg/dL High: > 200 mg/dL Literature Reference: See Cholesterol Current interpretive data was last revised on 07. HDL 44 40 - 199 mg/dl HISTORICAL RESULTS Comment: Interpretive Data Less than 40 mg/dL - low; A major risk factor for heart disease. Greater than or equal to 60 mg/dL - High; considered protective of heart disease. Literature Reference: See Cholesterol Current interpretive data was last revised on 2008. LDL 62 0 - 129 mg/dl HISTORICAL RESULTS Comment: Interpretive Data Optimal: < 100 mg/dL Near Optimal: 100 - 129 mg/dL Borderline High: 130 - 159 mg/dL High: > 160 mg/dL Literature Reference: See Cholesterol Current interpretive data was last revised on 07. Non-HDL cholesterol, calculated 74 mg/dl HISTORICAL RESULTS Comment: Interpretive Data When triglycerides are >200 mg/dL, non-HDL C is a secondary target of therapy, with a goal 30 mg/dL higher than the identified LDL-C goal. Reference: See Cholesterol Reference. Current interpretive data was last revised 2012. Serum 12/28/2014 8:01 PM CDT us Historical Provider LAB BLOOD ORDERABLES Chanel gates Result HISTORICAL RESULTS from Last 3 Months or Most Recently Relevant to Health [place] [address] [place] [address] [facility] [employer] OPEN ACCESS [facility] [place] [address] [employer] Advance Directives For more information, please contact: [phone] * Full Code (Latest Code Status on File) Date Activated Date Inactivated Comments 07/24/2023 5:25 PM 07/25/2023 6:31 PM * Full Code Date Activated Date Inactivated Comments 06/05/2018 7:50 AM 06/05/2018 5:46 PM Care Teams Metal Finisher Relationship Specialty Start Date End Date Rahat Haynes NP [address] [place] [address] PCP - General Family Medicine 04/15/25
[2025-07-23 08:00] VITALS: BP 115/67; PULSE 81; RESP 20; TEMP 36.6; O2SAT 97; BMI 26.0
--- NOTE | 2025-07-23 08:14 | WPDANESEPPF ---
Anes - Initial Pre Proc Eval Procedure: Operation Date: 07/23/25 09:00 Proposed Procedures p Screening Colonoscopy - Ra Stern MD Date/Time: 07/23/25 08:14 Surgeon: Ra Stern MD Pre Op Diagnosis: Personal history of colon polyps, unspecified Patient Data Age: 54 Gender: M Height: 1.7 m Weight: 75.4 kg Last Vital Signs Temp 36.6 C 07/23/25 08:00 Pulse 81 07/23/25 08:00 Resp 20 07/23/25 08:00 BP 115/67 07/23/25 08:00 Pulse Ox 97 07/23/25 08:00 O2 Del Method Room Air 07/23/25 08:00 Allergies Allergy/AdvReac Type Severity Reaction Status Date / Time No Known Allergies Allergy Verified 07/23/25 07:57 Home Medications ?Medication ?Instructions ?Recorded ?Confirmed ?Type warfarin 10 mg tablet 11 mg PO DAILY 04/09/22 07/16/25 History warfarin 10 mg tablet See Rx Instructions .Route .COMPLEX 04/09/22 07/16/25 History metoprolol succinate 50 mg 50 mg PO DAILY #10 tabs 04/12/22 07/23/25 Rx tablet,extended release 24 hr dicyclomine 10 mg capsule 10 mg PO TID PRN abdominal pain 12/30/24 07/23/25 Rx #30 caps sodium sul 1.479 gram-potas ch See Rx Instructions PO PER PKG DIR 01/27/25 07/16/25 Rx 0.188 gram-magnes sul 0.225 gram #24 tabs tablet (Sutab) allopurinol 300 mg tablet 300 mg PO DAILY #90 tabs 02/22/25 07/23/25 Rx levothyroxine 75 mcg tablet 75 mcg PO DAILY #90 tabs 02/22/25 07/23/25 Rx semaglutide 2 mg/dose (8 mg/3 mL) 2 mg (0.75 mL) subcut WEEKLY #3 mL 02/22/25 07/16/25 Rx subcutaneous pen injector atorvastatin 10 mg tablet 5 mg (1/2 x 10 mg) PO DAILY #45 05/20/25 07/23/25 Rx tabs metformin 1,000 mg tablet 1,000 mg PO BID #180 tabs 05/20/25 07/23/25 Rx venlafaxine 75 mg capsule,extended 75 mg PO QAM #90 caps 05/20/25 07/23/25 Rx release 24 hr ferrous sulfate 325 mg (65 mg 325 mg PO DAILY #90 tabs 05/24/25 07/23/25 Rx iron) tablet (Feosol) glimepiride 4 mg tablet 4 mg PO QAM #90 tabs 05/26/25 07/23/25 Rx ergocalciferol (vitamin D2) 1,250 1,250 mcg PO WEEKLY 07/16/25 07/23/25 History mcg (50,000 unit) capsule pimecrolimus 1 % topical cream 1 applic topical BID PRN flare up 07/16/25 07/23/25 History warfarin 1 mg tablet 3 mg PO .mwf 07/16/25 07/23/25 History warfarin 5 mg tablet 10 mg PO .sun,tues,thurs,sat 07/16/25 07/23/25 History Patient hx anesthesia problems: none Family hx anesthesia problems: none Results Review: All pre-operative results and documents have been reviewed as part of the pre-operative evaluation. 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 Paroxysmal atrial flutter Status post cardiac ablation. Major depression Surgical History Surgical History H/O cardiac radiofrequency ablation (~07/2023) History of cardiac radiofrequency ablation History of implantable cardiac defibrillator (ICD) History of colonoscopy with polypectomy (04/09/22) History of appendectomy History of pulmonary valve replacement with bioprosthetic valve History of tetralogy of Fallot repair History of cardioversion Family History Family History Mother Hypertension Family history of diabetes mellitus in first degree relative Family history of congestive heart failure Father Family history of diabetes mellitus in first degree relative Sibling Family history of diabetes mellitus in first degree relative Social History Social History Social History: Surrogate medical decision maker: Karen Elaine, spouse. Code status: Full code. Smoking packs per day: 1.5 Smoking cigarettes per day: 30.0 Years smoked: 20 Smoking pack-years: 30.00 Smoking status: Former smoker Tobacco type: cigarettes Second hand tobacco smoke exposure: Yes Additional smoking assessment comments: Quit in 2008. Alcohol intake: current Alcohol use details: Rare alcohol use in moderation. Substance use: never Substance use type: does not use Current Housing: Decline to Answer Concerned About Future Housing: Decline to Answer Difficulty Paying Gas/Electric Bills: Decline to Answer Difficulty Paying for Meds: Decline to Answer Currently Unemployed: Decline to Answer Education: Decline to Answer Difficulty w/ Childcare or Family Care: Decline to Answer Living arrangements: with family Spiritual care concerns: No Anes - Eval Final PreProcedure Day of Procedure 07/23/25 08:14 Patient weight: overweight Heart: regular rate and rhythm Lungs: clear to auscultation Airway: Mallampati scale class II Neurological: alert and oriented Last oral intake: >/= 8 hours ASA classification: III Emergent: no Anesthetic plan: proceed Anesthesia type and monitoring: general GIVS and standard monitoring Results Review: All pre-operative results and documents have been reviewed as part of the pre-operative evaluation. Informed Consent: The patient's anesthetic plan and its attendant risks and benefits were discussed with the patient/family/POA. Questions were solicited and answers provided to the satisfaction of the patient/family/POA.
[2025-07-23] MEDS: GENTAMICIN 80MG/SOD CHL 50 ML 80 MG/50 ML BAG 100 MG IVPB (08:18)
--- NOTE | 2025-07-23 08:31 | PM.HPGS ---
History of Present Illness History of Present Illness Consent: Risks, benefits, and alternatives have been discussed and questions answered. Patient agrees to proceed with procedure. 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 Paroxysmal atrial flutter Status post cardiac ablation. Major depression Surgical History Surgical History (Updated 07/23/25 @ 08:32 by Ra Stern MD) H/O cardiac radiofrequency ablation (~07/2023) History of cardiac radiofrequency ablation History of implantable cardiac defibrillator (ICD) History of colonoscopy with polypectomy (04/09/22) History of appendectomy History of pulmonary valve replacement with bioprosthetic valve History of tetralogy of Fallot repair History of cardioversion Family History Family History Mother Hypertension Family history of diabetes mellitus in first degree relative Family history of congestive heart failure Father Family history of diabetes mellitus in first degree relative Sibling Family history of diabetes mellitus in first degree relative Social History Social History Social History: Surrogate medical decision maker: Karen Elaine, spouse. Code status: Full code. Smoking packs per day: 1.5 Smoking cigarettes per day: 30.0 Years smoked: 20 Smoking pack-years: 30.00 Smoking status: Former smoker Tobacco type: cigarettes Second hand tobacco smoke exposure: Yes Additional smoking assessment comments: Quit in 2008. Alcohol intake: current Alcohol use details: Rare alcohol use in moderation. Substance use: never Substance use type: does not use Current Housing: Decline to Answer Concerned About Future Housing: Decline to Answer Difficulty Paying Gas/Electric Bills: Decline to Answer Difficulty Paying for Meds: Decline to Answer Currently Unemployed: Decline to Answer Education: Decline to Answer Difficulty w/ Childcare or Family Care: Decline to Answer Living arrangements: with family Spiritual care concerns: No Meds Home Medications and Allergies Home Medications ?Medication ?Instructions ?Recorded ?Confirmed ?Type warfarin 10 mg tablet 11 mg PO DAILY 04/09/22 07/16/25 History warfarin 10 mg tablet See Rx Instructions .Route .COMPLEX 04/09/22 07/16/25 History metoprolol succinate 50 mg 50 mg PO DAILY #10 tabs 04/12/22 07/23/25 Rx tablet,extended release 24 hr dicyclomine 10 mg capsule 10 mg PO TID PRN abdominal pain 12/30/24 07/23/25 Rx #30 caps sodium sul 1.479 gram-potas ch See Rx Instructions PO PER PKG DIR 01/27/25 07/16/25 Rx 0.188 gram-magnes sul 0.225 gram #24 tabs tablet (Sutab) allopurinol 300 mg tablet 300 mg PO DAILY #90 tabs 02/22/25 07/23/25 Rx levothyroxine 75 mcg tablet 75 mcg PO DAILY #90 tabs 02/22/25 07/23/25 Rx semaglutide 2 mg/dose (8 mg/3 mL) 2 mg (0.75 mL) subcut WEEKLY #3 mL 02/22/25 07/16/25 Rx subcutaneous pen injector atorvastatin 10 mg tablet 5 mg (1/2 x 10 mg) PO DAILY #45 05/20/25 07/23/25 Rx tabs metformin 1,000 mg tablet 1,000 mg PO BID #180 tabs 05/20/25 07/23/25 Rx venlafaxine 75 mg capsule,extended 75 mg PO QAM #90 caps 05/20/25 07/23/25 Rx release 24 hr ferrous sulfate 325 mg (65 mg 325 mg PO DAILY #90 tabs 05/24/25 07/23/25 Rx iron) tablet (Feosol) glimepiride 4 mg tablet 4 mg PO QAM #90 tabs 05/26/25 07/23/25 Rx ergocalciferol (vitamin D2) 1,250 1,250 mcg PO WEEKLY 07/16/25 07/23/25 History mcg (50,000 unit) capsule pimecrolimus 1 % topical cream 1 applic topical BID PRN flare up 07/16/25 07/23/25 History warfarin 1 mg tablet 3 mg PO .mwf 07/16/25 07/23/25 History warfarin 5 mg tablet 10 mg PO .sun,tues,thurs,sat 07/16/25 07/23/25 History Allergies Allergy/AdvReac Type Severity Reaction Status Date / Time No Known Allergies Allergy Verified 07/23/25 07:57 Vital Signs Vital Signs - 24 hr 07/23/25 08:00 Temperature 97.9 F Pulse Rate 81 Respiratory Rate 20 Blood Pressure 115/67 Pulse Oximetry 97 Oxygen Delivery Room Air Exam Const: General: comfortable and no acute distress HENMT: Face/Nose/Sinus: Normal nares present Eyes: General: appearance normal, both eyes and all related structures Neck: Neck: no JVD Resp: Auscultation: clear to auscultation bilaterally GI: Inspection: non-distended GI Palp: Yes Soft to palpation Skin: General skin exam: normal color Extrem: General: normal to inspection Psych: Mental Status: mental status grossly normal Assessment and Plan Assessment and plan (1) History of colon polyps: Code(s): Z86.010 - Personal history of colon polyps Status: Acute Assessment and Plan: colonoscopy
[2025-07-23 08:38] LABS: INR 1.1; Prothrombin Time 14.3 Seconds (11.1-14.7)
[2025-07-23] MEDS: LACTATED RINGERS 1,000 ML 150 ML IV CONT (08:40)
[2025-07-23] MEDS: AMPICILLIN SODIUM 2 GM in SODIUM CHLORIDE 0.9% IV 100 ML 200 ML IVPB (08:48)
--- NOTE | 2025-07-23 09:22 | S_PTH ---
PATIENT: Tato Elaine LOC: [facility] Coe#:[id number] AGE/SX: 54/M ROOM: RE07/23/[address]: Ra Stern MD : 1970 BED: DIS: 07/23/2025 SPEC #: [id number] RECD: 07/23/25 11:50 STATUS: PORTER RELien #: [id number] [place]: 07/23/25 09:[address]: Ra Stern DEPT: [facility] Surgical RECD BY: Haylee Hill Tissues: A - Colon Polypectomy B - Colon Polypectomy Procedures: Hematoxylin and Eosin Stain Gross and Microscopic Level 4
[2025-07-23 09:26] VITALS: BP 79/52; PULSE 84; RESP 21; O2SAT 94
[2025-07-23 09:36] VITALS: BP 74/58; PULSE 78; RESP 23; O2SAT 96
[2025-07-23 09:46] VITALS: BP 116/69; PULSE 70; RESP 22; O2SAT 100
== END 2025-07-23 10:00 | disposition home or self-care (01) ==
PROVIDERS: Referring Provider Internal Medicine Gastroenterology; Visit Provider Internal Medicine Gastroenterology
PROC: 0DJD8ZZ Inspection of Lower Intestinal Tract, Via Natural or Artificial Opening Endoscopic (ICD-10-PCS; CPT 45378; principal; 2025-07-23 09:00)
DX: Z12.11 Encounter for screening for malignant neoplasm of colon (principal); D12.0 Benign neoplasm of cecum; D12.2 Benign neoplasm of ascending colon; K64.8 Other hemorrhoids; E11.9 Type 2 diabetes mellitus without complications; Z87.891 Personal history of nicotine dependence
CPT/HCPCS: 45380; 45385; 36415; 82948; 85610; 88305; J0290; J1580; J2003; J2704; J7120